=== PATIENT | female | born 1935 | race Caucasian/White ===

== ENCOUNTER → 2018-05-10 09:45 | Outpatient (CLI) | payer MEDICARE, SELFPAY ==
[2018-05-10 12:31] LABS: Absolute Lymphocyte Count 1.09 X10^3/ul (0.83-4.51); Absolute Neutrophil Count 3.5 X10^3/uL (2.0-7.7); Basophil# 0.03 X10^3/uL; Basophil% 0.6 % (0-1); Eosinophil# 0.06 X10^3/uL; Eosinophils% 1.2 % (0-5); Hematocrit 43.3 % (37-47); Hemoglobin 14.2 g/dl (12.0-15.0); Lymphocyte # 1.09 X10^3/ul (4.0); Lymphocyte % 21.1 % (19-41); Mean Corp Hgb Conc 32.8 g/gl (32-36); Mean Corpuscular Hgb 30.7 pg (27.0-32.0); Mean Corpuscular Volume 93.7 fL (81-99); Mean Platelet Vol. 9.5 fl (6.2-12.0); Monocyte# 0.48 X10^3/uL; Monocyte% 9.3 % (0-10); Neutrophil % 67.6 % (47-70); Platelet Count 228 K/mm3 (150-450); RBC Distribution Width CV 12.9 % (11.6-14.6); RBC Distribution Width SD 43.5 fl (35.1-43.9); Red Blood Count 4.62 M/mm3 (4.2-5.4); White Blood Count 5.2 K/mm3 (4.4-11.0)
[2018-05-10 12:36] LABS: POSITIVE COUNT NO; POSITIVE DIFFERENTIAL NO; POSITIVE MORPHOLOGY NO
[2018-05-10 12:56] LABS: Vitamin D,25 Hydroxy 39.3 ng/mL (29.95-100.01)
[2018-05-10 13:10] LABS: ALB/GLOB Ratio 0.8 RATIO (0.9-2.4); AST(SGOT) 27 U/L (15-37); Alanine Aminotransfer ALT/SGPT 15 U/L (13-56); Albumin, Serum 3.5 g/dL (3.2-5.0); Alkaline Phosphatase 54 U/L (45-117); Anion Gap 6 (5-15); BUN 15 mg/dL (7-18); BUN/Creat Ratio 16.4 RATIO (10-20); Chloride 102 mmol/L (98-107); Creatinine, Serum 0.91 mg/dL (0.55-1.02); EST Glomerular Filtration Rate 63 mL/min (>60); Est Glom Filt Rate - Afr Amer 76 mL/min (>60); Globulin 4.2 g/dL (2.2-4.2); Glucose 77 mg/dL (74-106); Potassium 4.1 mmol/L (3.5-5.1); Protein, Total 7.7 g/dL (6.4-8.2); Sodium Level 140 mmol/L (136-145); Thyroid Stim Hormone (TSH) 1.42 uIU/mL (0.358-3.74)
== END ==
PROVIDERS: Family Provider Family Medicine Geriatric Medicine; PCP Family Medicine Geriatric Medicine; Visit Provider Family Medicine Geriatric Medicine
DX: I10 Essential (primary) hypertension (principal); E55.9 Vitamin D deficiency, unspecified
CPT/HCPCS: 36415; 80053; 82306; 84443; 85025

== ENCOUNTER → 2018-07-12 08:34 | Outpatient (CLI) | payer MEDICARE, SELFPAY ==
--- NOTE | 2018-07-12 08:39 | BD_ITS ---
STUDY: DUAL ENERGY X-RAY ABSORPTIOMETRY / DXA REASON FOR EXAM: Female, 83 years old. Early menopause. No loss of height. TECHNIQUE: Bone Mineral Density (BMD) measurements of lumbar spine and bilateral hips were obtained. COMPARISON: Comparison is made with prior study date June 27, 2012. FINDINGS: Lumbar Spine (L1-L4): g/cm2 (1.253) / T-score (0.6) / Z-score (2.5) Findings are suggestive of normal bone density with a low fracture risk. Left Femur Total: g/cm2 (0.927) / T-score (-0.6) / Z-score (1.5) Left Femoral Neck: g/cm2 (0.876) / T-score (-1.2) / Z-score (1.1) Right Femur Total: g/cm2 (0.884) / T-score (-1.0) / Z-score (1.1) Right Femoral Neck: g/cm2 (0.854) / T-score (-1.3) / Z-score (0.9) The T-Scores on the most recent prior examination were: Lumbar Spine (L1-L4): There has been worsening of bone density since the previous examination. Left Femur Total: which represents a worsening of 0.5%. Right Femur Total: which represents a worsening of 5.0%. BD/Dexa Bone Density Study IMPRESSION: The patient is considered osteopenic as outlined below according to World Percy Organization (WHO) criteria with a moderate fracture risk. There has been worsening of bone density since the previous examination. Reference Information: The T-score is the number of standard deviations above or below the standard which is normal for young adults at their peak bone mineral density. The World Health Organization (WHO) interprets the T-scores as follows: Above -1 Normal bone density Between -1 and -2.5 Osteopenia Equal to / or below -2.5 Osteoporosis As a practical clinical guideline, osteopenia may be graded as follows: Mild -1 through -1.5 Moderate -1.6 through -2.0 Severe -2.1 through -2.4 The Z-score is the number of standard deviations above or below age-matched controls. A Z-score of less than -1.5 would be considered abnormal. References: 1. NIH Osteoporosis and Related Bone Diseases http://www.osteo.org 2. International Society for Clinical Densitometry http://www.iscd.org 3. National Osteoporosis Foundation http://www.nof.org Electronically Signed: Allan Gonzalez MD at 10:19 EDT Tel [phone], Service support ,
== END ==
PROVIDERS: Family Provider Family Medicine Geriatric Medicine; PCP Family Medicine Geriatric Medicine
DX: Z78.0 Asymptomatic menopausal state (principal); Z13.820 Encounter for screening for osteoporosis; M85.80 Other specified disorders of bone density and structure, unspecified site
CPT/HCPCS: 77080

== ENCOUNTER → 2019-05-14 08:53 | Outpatient (CLI) | payer MEDICARE, SELFPAY ==
[2019-05-14 11:52] LABS: Absolute Lymphocyte Count 0.75 X10^3/uL (0.83-4.51); Absolute Neutrophil Count 9.4 X10^3/uL (2.0-7.7); Basophil# 0.02 X10^3/uL; Basophil% 0.2 % (0-1); Eosinophil# 0.03 X10^3/uL; Eosinophils% 0.3 % (0-5); Lymphocyte # 0.75 X10^3/ul (4.0); Lymphocyte % 6.9 % (19-41); Mean Corp Hgb Conc 32.6 g/dL (32-36); Mean Corpuscular Hgb 30.5 pg (27.0-32.0); Mean Corpuscular Volume 93.7 fL (81-99); Mean Platelet Vol. 9.2 fl (6.2-12.0); Monocyte% 5.5 % (0-10); NRBC Flagged by Analyzer 0 % (0-5); Neutrophil # 9.39 X10^3/uL (2.7-7.7); Neutrophil % 86.7 % (47-70); Platelet Count 230 K/mm3 (150-450); RBC Distribution Width CV 13.4 % (11.6-14.6); RBC Distribution Width SD 45.2 fl (35.1-43.9); Red Blood Count 4.59 M/mm3 (4.2-5.4); White Blood Count 10.8 K/mm3 (4.4-11.0)
[2019-05-14 12:12] LABS: ALB/GLOB Ratio 0.9 RATIO (0.9-2.4); AST(SGOT) 26 U/L (15-37); Alanine Aminotransfer ALT/SGPT 8 U/L (13-56); Albumin, Serum 3.3 g/dL (3.2-5.0); Alkaline Phosphatase 58 U/L (45-117); Anion Gap 5 (5-15); BUN 30 mg/dL (7-18); BUN/Creat Ratio 20.1 RATIO (10-20); Calcium,Total 8.6 mg/dL (8.5-10.1); Chloride 103 mmol/L (98-107); Creatinine, Serum 1.49 mg/dL (0.55-1.02); EST Glomerular Filtration Rate 36 mL/min (>60); Est Glom Filt Rate - Afr Amer 43 mL/min (>60); Globulin 3.7 g/dL (2.2-4.2); Glucose 96 mg/dL (74-106); Sodium Level 137 mmol/L (136-145); Thyroid Stim Hormone (TSH) 1.04 uIU/mL (0.358-3.74)
[2019-05-14 22:03] LABS: Vitamin D,25 Hydroxy 30.3 ng/mL (29.95-100.01)
== END ==
PROVIDERS: Family Provider Family Medicine Geriatric Medicine; PCP Family Medicine Geriatric Medicine; Visit Provider Family Medicine Geriatric Medicine
DX: I10 Essential (primary) hypertension (principal); E55.9 Vitamin D deficiency, unspecified
CPT/HCPCS: 36415; 80053; 82306; 84443; 85025

== ENCOUNTER → 2019-07-23 13:34 | Outpatient (CLI) | payer MEDICARE, SELFPAY ==
[2019-07-23 16:39] LABS: Absolute Lymphocyte Count 1.23 X10^3/uL (0.83-4.51); Absolute Neutrophil Count 6.2 X10^3/uL (2.0-7.7); Basophil# 0.03 X10^3/uL; Basophil% 0.4 % (0-1); Eosinophil# 0.03 X10^3/uL; Eosinophils% 0.4 % (0-5); Hematocrit 42.9 % (37-47); Hemoglobin 13.5 g/dL (12.0-15.0); Lymphocyte # 1.23 X10^3/ul (4.0); Lymphocyte % 15.1 % (19-41); Mean Corp Hgb Conc 31.5 g/dL (32-36); Mean Corpuscular Hgb 30.6 pg (27.0-32.0); Mean Corpuscular Volume 97.3 fL (81-99); Mean Platelet Vol. 9.5 fl (6.2-12.0); Monocyte# 0.67 X10^3/uL; Monocyte% 8.2 % (0-10); NRBC Flagged by Analyzer 0 % (0-5); Neutrophil # 6.16 X10^3/uL (2.7-7.7); Neutrophil % 75.4 % (47-70); Platelet Count 223 K/mm3 (150-450); RBC Distribution Width CV 13.4 % (11.6-14.6); RBC Distribution Width SD 47.9 fl (35.1-43.9); Red Blood Count 4.41 M/mm3 (4.2-5.4); White Blood Count 8.2 K/mm3 (4.4-11.0)
[2019-07-23 16:57] LABS: ALB/GLOB Ratio 0.8 RATIO (0.9-2.4); AST(SGOT) 20 U/L (15-37); Alanine Aminotransfer ALT/SGPT 10 U/L (13-56); Albumin, Serum 3.2 g/dL (3.2-5.0); Alkaline Phosphatase 65 U/L (45-117); Anion Gap 5 (5-15); BUN 23 mg/dL (7-18); BUN/Creat Ratio 27.9 RATIO (10-20); Calcium,Total 8.7 mg/dL (8.5-10.1); Chloride 103 mmol/L (98-107); Creatinine, Serum 0.82 mg/dL (0.55-1.02); EST Glomerular Filtration Rate 70 mL/min (>60); Est Glom Filt Rate - Afr Amer 85 mL/min (>60); Globulin 4.1 g/dL (2.2-4.2); Glucose 120 mg/dL (74-106); Protein, Total 7.3 g/dL (6.4-8.2); Sodium Level 136 mmol/L (136-145)
== END ==
PROVIDERS: Family Provider Family Medicine Geriatric Medicine; PCP Family Medicine Geriatric Medicine; Visit Provider Family Medicine Geriatric Medicine
DX: R10.9 Unspecified abdominal pain (principal); N39.0 Urinary tract infection, site not specified
CPT/HCPCS: 36415; 80053; 85025; 87086

== ENCOUNTER → 2019-07-23 16:12 | Outpatient (CLI) | payer MEDICARE, SELFPAY ==
--- NOTE | 2019-07-23 16:15 | CT_ITS ---
STUDY: CT ABDOMEN AND PELVIS WITH CONTRAST REASON FOR EXAM: Female, 84 years old. Abdominal pain. RADIATION DOSAGE (If Supplied By Facility): CTDIvol = ( 15.07 ) mGy, DLP = ( 304.09 ) mGycm TECHNIQUE: Transaxial images were obtained from the dome of the diaphragm to the symphysis pubis with oral contrast. 100 ml of Gastrografin 100mL Isovue-300 contrast was administered. Sagittal and coronal images were reconstructed. Individualized dose optimization techniques were used for this CT. COMPARISON: None. FINDINGS: The visualized lung bases are clear. The visualized portions of the heart and pericardium are within normal limits. There are no calcified gallstones present. The liver is within normal limits. There are no suspicious hepatic lesions. The spleen is normal in size. The pancreas is within normal limits. The adrenal glands are within normal limits. There are no renal or ureteral stones. There is no hydronephrosis. There are no focal renal lesions. Normal visualized stomach. There is no bowel obstruction. There is a large amount of stool in the colon, consistent with constipation. There are inflammatory changes in the pelvis adjacent to sigmoid diverticula. This is consistent with acute sigmoid diverticulitis. The appendix is visualized and appears normal. The aorta is normal in caliber. The patient is status post hysterectomy. There is no abdominal or pelvic free air, free fluid, fluid collection or lymphadenopathy. There are no destructive osseous lesions. CT/Abdomen/Pelvis WITH Contrast IMPRESSION: Acute sigmoid diverticulitis without evidence of perforation or abscess formation. No bowel obstruction. Normal appendix. Constipation. Electronically Signed: Alex Sandy, at 17:53 EDT Tel , Service support ,
== END ==
PROVIDERS: Family Provider Family Medicine Geriatric Medicine; PCP Family Medicine Geriatric Medicine; Referring Provider Family Medicine Geriatric Medicine; Visit Provider Family Medicine Geriatric Medicine
DX: R10.9 Unspecified abdominal pain (principal); N39.0 Urinary tract infection, site not specified
CPT/HCPCS: 36415; 74177; 80053; 85025; 87086; 87088; Q9967

== ENCOUNTER → 2019-07-24 09:43 | Outpatient (CLI) | payer MEDICARE, SELFPAY | PROVIDERS: Family Provider Family Medicine Geriatric Medicine; PCP Family Medicine Geriatric Medicine; Referring Provider Family Medicine Geriatric Medicine; Visit Provider Family Medicine Geriatric Medicine | DX: R19.7 Diarrhea, unspecified (principal) | CPT/HCPCS: 82274; 83630; 87177; 87209; 87493; 87506 ==

== ENCOUNTER → 2020-04-30 08:10 | Outpatient (CLI) | payer MEDICARE, SELFPAY ==
--- NOTE | 2020-04-30 08:22 | BD_ITS ---
STUDY: DUAL ENERGY X-RAY ABSORPTIOMETRY / DXA REASON FOR EXAM: Female, 84 years old. TRANSITIONS RN CARE COORDINATOR-SURGICAL EARLY AT 35 -- HX OF HRT -- TAKES 1000MG CALCIUM + MULTIVITAMIN -- HAS BEEN ON [facility] FOR A LONG TIME -- DOES HIGH AMOUNT OF EXERCISE -- FAMILY HX OF OSTEO- MOTHER -- LISA OF 0.75 INCHES TECHNIQUE: Bone Mineral Density (BMD) measurements of lumbar spine and bilateral hips were obtained. COMPARISON: Comparison is made with prior study dated July 12, 2018. FINDINGS: Lumbar Spine (L1-L4): g/cm2 (1.309) / T-score (1.2) / Z-score (3.1) Findings are suggestive of normal bone density with a low fracture risk. Left Femur Total: g/cm2 (0.872) / T-score (-1.1) / Z-score (1.1) Left Femoral Neck: g/cm2 (0.850) / T-score (-1.4) / Z-score (1.0) Right Femur Total: g/cm2 (0.856) / T-score (-1.2) / Z-score (1.0) Right Femoral Neck: g/cm2 (0.854) / T-score (-1.3) / Z-score (1.0) The T-Scores on the most recent prior examination were: Lumbar Spine (L1-L4): There has been improvement of bone density since the previous examination. Left Femur Total: which represents a worsening of 5.9%. Right Femur Total: which represents a worsening of 3.2%. BD/Dexa Bone Density Study IMPRESSION: The patient is considered osteopenic as outlined below according to World Percy Organization (WHO) criteria with a low fracture risk. There has been worsening of bone density since the previous examination. Reference Information: The T-score is the number of standard deviations above or below the standard which is normal for young adults at their peak bone mineral density. The World Health Organization (WHO) interprets the T-scores as follows: Above -1 Normal bone density Between -1 and -2.5 Osteopenia Equal to / or below -2.5 Osteoporosis As a practical clinical guideline, osteopenia may be graded as follows: Mild -1 through -1.5 Moderate -1.6 through -2.0 Severe -2.1 through -2.4 The Z-score is the number of standard deviations above or below age-matched controls. A Z-score of less than -1.5 would be considered abnormal. References: 1. NIH Osteoporosis and Related Bone Diseases http://www.osteo.org 2. International Society for Clinical Densitometry http://www.iscd.org 3. National Osteoporosis Foundation http://www.nof.org Electronically Signed: Allan Gonzalez, at 8:28 EDT , Service support ,
== END ==
PROVIDERS: PCP Family Medicine Geriatric Medicine; Referring Provider Family Medicine Geriatric Medicine; Visit Provider Family Medicine Geriatric Medicine
DX: Z78.0 Asymptomatic menopausal state (principal); M85.80 Other specified disorders of bone density and structure, unspecified site
CPT/HCPCS: 77080

== ENCOUNTER → 2020-05-15 10:03 | Outpatient (CLI) | payer MEDICARE, SELFPAY ==
[2020-05-15 12:41] LABS: Absolute Lymphocyte Count 1.57 X10^3/uL (0.83-4.51); Basophil# 0.03 X10^3/uL; Basophil% 0.6 % (0-1); Eosinophil# 0.07 X10^3/uL; Eosinophils% 1.4 % (0-5); Hematocrit 44.6 % (37-47); Lymphocyte # 1.57 X10^3/ul (4.0); Lymphocyte % 30.4 % (19-41); Mean Corp Hgb Conc 31.4 g/dL (32-36); Mean Corpuscular Hgb 30.6 pg (27.0-32.0); Mean Corpuscular Volume 97.4 fL (81-99); Mean Platelet Vol. 9.4 fl (6.2-12.0); Monocyte% 9.7 % (0-10); NRBC Flagged by Analyzer 0 % (0-5); Neutrophil # 2.99 X10^3/uL (2.7-7.7); Neutrophil % 57.7 % (47-70); Platelet Count 201 K/mm3 (150-450); RBC Distribution Width CV 13.1 % (11.6-14.6); RBC Distribution Width SD 46.7 fl (35.1-43.9); Red Blood Count 4.58 M/mm3 (4.2-5.4); White Blood Count 5.2 K/mm3 (4.4-11.0)
[2020-05-15 13:06] LABS: Vitamin D,25 Hydroxy 51.5 ng/mL
[2020-05-15 13:17] LABS: ALB/GLOB Ratio 0.9 RATIO (0.9-2.4); AST(SGOT) 23 U/L (15-37); Alanine Aminotransfer ALT/SGPT 14 U/L (13-56); Albumin, Serum 3.5 g/dL (3.2-5.0); Alkaline Phosphatase 52 U/L (45-117); Anion Gap 2 (5-15); BUN 22 mg/dL (7-18); Calcium,Total 8.8 mg/dL (8.5-10.1); Chloride 103 mmol/L (98-107); Creatinine, Serum 0.73 mg/dL (0.55-1.02); EST Glomerular Filtration Rate 80 mL/min (>60); Est Glom Filt Rate - Afr Amer 97 mL/min (>60); Globulin 3.8 g/dL (2.2-4.2); Glucose 79 mg/dL (74-106); Potassium 4.4 mmol/L (3.5-5.1); Protein, Total 7.3 g/dL (6.4-8.2); Sodium Level 138 mmol/L (136-145); Thyroid Stim Hormone (TSH) 2.71 uIU/mL (0.358-3.74)
== END ==
PROVIDERS: PCP Family Medicine Geriatric Medicine; Visit Provider Family Medicine Geriatric Medicine
DX: I10 Essential (primary) hypertension (principal); E55.9 Vitamin D deficiency, unspecified
CPT/HCPCS: 36415; 80053; 82306; 84443; 85025

== ENCOUNTER → 2021-05-18 08:55 | Outpatient (CLI) | payer MEDICARE, SELFPAY ==
[2021-05-18 11:04] LABS: Absolute Lymphocyte Count 1.24 X10^3/uL (0.83-4.51); Absolute Neutrophil Count 4.1 X10^3/uL (2.0-7.7); Basophil# 0.03 X10^3/uL; Basophil% 0.5 % (0-1); Eosinophil# 0.07 X10^3/uL; Eosinophils% 1.2 % (0-5); Hematocrit 47.6 % (37-47); Hemoglobin 15.2 g/dL (12.0-15.0); Lymphocyte # 1.24 X10^3/ul (0.83-4.51); Mean Corp Hgb Conc 31.9 g/dL (32-36); Mean Corpuscular Hgb 30.6 pg (27.0-32.0); Mean Corpuscular Volume 95.8 fL (81-99); Mean Platelet Vol. 9.4 fl (6.2-12.0); Monocyte# 0.47 X10^3/uL; NRBC Flagged by Analyzer 0 % (0-5); Neutrophil # 4.08 X10^3/uL (2.7-7.7); Neutrophil % 69.1 % (47-70); Platelet Count 202 K/mm3 (150-450); RBC Distribution Width CV 12.6 % (11.6-14.6); RBC Distribution Width SD 44.8 fl (35.1-43.9); Red Blood Count 4.97 M/mm3 (4.2-5.4); White Blood Count 5.9 K/mm3 (4.4-11.0)
[2021-05-18 11:21] LABS: Vitamin D,25 Hydroxy 56.1 ng/mL
[2021-05-18 11:28] LABS: ALB/GLOB Ratio 0.9 RATIO (0.9-2.4); AST(SGOT) 25 U/L (15-37); Alanine Aminotransfer ALT/SGPT 14 U/L (13-56); Albumin, Serum 3.7 g/dL (3.2-5.0); Alkaline Phosphatase 52 U/L (45-117); Anion Gap 6 (5-15); BUN 21 mg/dL (7-18); BUN/Creat Ratio 30.7 RATIO (10-20); Calcium,Total 8.9 mg/dL (8.5-10.1); Chloride 103 mmol/L (98-107); Creatinine, Serum 0.68 mg/dL (0.55-1.02); EST Glomerular Filtration Rate 87 mL/min (>60); Est Glom Filt Rate - Afr Amer 105 mL/min (>60); Glucose 88 mg/dL (74-106); Potassium 4.1 mmol/L (3.5-5.1); Protein, Total 7.7 g/dL (6.4-8.2); Sodium Level 139 mmol/L (136-145); Thyroid Stim Hormone (TSH) 1.94 uIU/mL (0.358-3.74)
== END ==
PROVIDERS: Visit Provider Family Medicine Geriatric Medicine
DX: I10 Essential (primary) hypertension (principal); E55.9 Vitamin D deficiency, unspecified
CPT/HCPCS: 36415; 80053; 82306; 84443; 85025

== ENCOUNTER → 2022-04-12 | Outpatient (CLI) | payer MEDICARE, SELFPAY ==
--- NOTE | 2022-04-12 14:40 | RAD_ITS ---
EXAM: XR LUMBOSACRAL SPINE, 2 OR 3 VIEWS CLINICAL INDICATION: M56.26 TECHNIQUE: Frontal and lateral views of the lumbar spine and sacrum. This report was created using [employer] technology. COMPARISON: None. FINDINGS: VERTEBRAE: Unremarkable. Preserved vertebral body height. No fracture. No spondylolisthesis. Preservation of the normal lumbar lordosis. No significant facet arthropathy. DISC SPACES: There is disc space narrowing at all levels. GASTROINTESTINAL TRACT: Unremarkable as visualized. Included bowel gas pattern is non-obstructive. RAD/Lumbar Spine 2 or 3 Views IMPRESSION: 1. No acute osseous abnormalities. 2. Degenerative changes with disc space narrowing. Electronically Signed: Volodymyr Cooper MD at 3:06 EDT ,
== END | disposition home or self-care (01) ==
LOC: RAD 14:42
PROVIDERS: PCP Family Medicine Geriatric Medicine; Visit Provider Anesthesiology Pain Medicine
DX: M54.50 Low back pain, unspecified (principal)
CPT/HCPCS: 72100

== ENCOUNTER → 2022-04-14 | Outpatient (CLI) | payer MEDICARE, SELFPAY ==
--- NOTE | 2022-04-14 13:11 | STRESSREP ---
Stress Test Report Date: 04-14-2022 Procedure: Pharmacologic stress nuclear imaging study Indications: Non-ST segment elevation MT Consent: Per the patient Procedure: The patient underwent pharmacologic (Regadenoson 0.4mg ) evaluation with a peak heart rate of 86 beats per minute (63%predicted maximal heart rate) and a peak blood pressure of 142/70 mmHg. The baseline ECG demonstrated normal sinus rhythm; left bundle branch block pattern. The peak pharmacologic ECG demonstrated no obvious ECG changes. There was an isolated PVC during infusion. There was no complaint of chest discomfort during pharmacologic infusion or recovery. The examination was discontinued secondary to completion of protocol. Impression: 1. Pharmacologic (Regadenoson) evaluation 2. Peak pharmacologic ECG with continued left bundle branch block pattern with no obvious ECG changes. 3. There was an isolated PVC during infusion. 4. Nuclear images pending Myocardial perfusion imaging study: Technique: The patient was injected with 11 point millicuries of technetium 99m Cardiolite and subsequently rest SPECT Cardiolite nuclear imaging was obtained in the horizontal long, vertical long, and short axis views. The patient underwent pharmacologic (Regadenoson) evaluation with a peak heart rate of 86 beats per minute (63% percent predicted maximal heart rate) and a peak blood pressure of 142/70 mmHg. The patient was injected with 33.2 millicuries of technetium 99m Cardiolite and subsequently stress SPECT Cardiolite nuclear imaging was obtained in the horizontal long, vertical long, and short axis views. A gated Cardiolite study at peak stress was obtained. Interpretation: Rest and stress SPECT Cardiolite nuclear imaging status post realignment, normalization, and attenuation correction demonstrate the appearance of diminished absence of myocardial perfusion/tracer uptake in portions of the mid to distal anterior, anteroapical, distal anteroseptal/septal apical, and distal inferoseptal/septal apical segments without significant change between rest and stress. There is diminished end-systolic thickening and brightening in the aforementioned area. The gated Cardiolite study demonstrates diminished myocardial thickening and inward wall motion in the aforementioned areas. The reported LVEF is 72%. Impression: 1. Rest and stress SPECT current nuclear imaging demonstrate myocardial perfusion changes compatible with an area of previous myocardial injury/infarction involving portions of the mid to distal anterior, anteroapical, distal anteroseptal/septal apical, and distal inferoseptal/septal apical segments with no myocardial perfusion changes considered diagnostic for associated stress-induced myocardial ischemia. 2. The gated Cardiolite study reports an LVEF of 72%. This note was generated with [employer] software. It may contain incorrect words, spelling, and punctuation that were not noted in checking the note before signing.
== END | disposition home or self-care (01) ==
PROVIDERS: PCP Family Medicine Geriatric Medicine; Referring Provider Family Medicine Geriatric Medicine; Visit Provider Family Medicine Geriatric Medicine
DX: I21.4 Non-ST elevation (NSTEMI) myocardial infarction (principal)
CPT/HCPCS: 78452; 93017; A9500; A4216; J2785

== ENCOUNTER → 2022-05-31 | Outpatient (CLI) | payer MEDICARE, SELFPAY ==
[2022-05-31 13:33] LABS: Absolute Lymphocyte Count 1.64 X10^3/uL (0.83-4.51); Absolute Neutrophil Count 3.9 X10^3/uL (2.0-7.7); Basophil# 0.03 X10^3/uL; Basophil% 0.5 % (0-1); Eosinophil# 0.08 X10^3/uL; Eosinophils% 1.3 % (0-5); Hematocrit 44.6 % (37-47); Hemoglobin 14.3 g/dL (12.0-15.0); Lymphocyte # 1.64 X10^3/ul (0.83-4.51); Lymphocyte % 25.9 % (19-41); Mean Corp Hgb Conc 32.1 g/dL (32-36); Mean Corpuscular Hgb 30.9 pg (27.0-32.0); Mean Corpuscular Volume 96.3 fL (81-99); Mean Platelet Vol. 8.7 fl (6.2-12.0); Monocyte# 0.62 X10^3/uL; Monocyte% 9.8 % (0-10); NRBC Flagged by Analyzer 0 % (0-5); Neutrophil # 3.94 X10^3/uL (2.7-7.7); Neutrophil % 62.2 % (47-70); Platelet Count 202 K/mm3 (150-450); RBC Distribution Width CV 13.2 % (11.6-14.6); RBC Distribution Width SD 46.6 fl (35.1-43.9); Red Blood Count 4.63 M/mm3 (4.2-5.4); White Blood Count 6.3 K/mm3 (4.4-11.0)
[2022-05-31 13:55] LABS: Vitamin D,25 Hydroxy 57.7 ng/mL
[2022-05-31 14:00] LABS: ALB/GLOB Ratio 0.9 RATIO (0.9-2.4); AST(SGOT) 21 U/L (15-37); Alanine Aminotransfer ALT/SGPT 8 U/L (13-56); Albumin, Serum 3.4 g/dL (3.2-5.0); Alkaline Phosphatase 48 U/L (45-117); Anion Gap 5 (5-15); BUN 25 mg/dL (7-18); BUN/Creat Ratio 36.8 RATIO (10-20); Calcium,Total 9.2 mg/dL (8.5-10.1); Chloride 104 mmol/L (98-107); Creatinine, Serum 0.68 mg/dL (0.55-1.02); EST Glomerular Filtration Rate 87 mL/min (>60); Est Glom Filt Rate - Afr Amer 106 mL/min (>60); Globulin 3.8 g/dL (2.2-4.2); Glucose 84 mg/dL (74-106); Potassium 4.2 mmol/L (3.5-5.1); Protein, Total 7.2 g/dL (6.4-8.2); Sodium Level 139 mmol/L (136-145); Thyroid Stim Hormone (TSH) 1.71 uIU/mL (0.358-3.74); Uric Acid 2.8 mg/dL (2.6-6.0)
== END | disposition home or self-care (01) ==
LOC: LAB 12:44
PROVIDERS: PCP Family Medicine Geriatric Medicine; Referring Provider Family Medicine Geriatric Medicine; Visit Provider Family Medicine Geriatric Medicine
DX: I10 Essential (primary) hypertension (principal); E55.9 Vitamin D deficiency, unspecified; M10.9 Gout, unspecified
CPT/HCPCS: 36415; 80053; 82306; 84443; 84550; 85025

== ENCOUNTER → 2022-08-20 | Outpatient (CLI) | payer MEDICARE, SELFPAY ==
[2022-08-20 12:40] LABS: Mucous, Urine 0 SEEN /hpf (<or=2+); Red Blood Cells-Urine 0 SEEN /hpf (0-5)
[2022-08-20 13:46] LABS: Color, Urine Yellow (Yellow); Glucose, Dipstick Normal (Normal); Ketone-Dipstick 5 mg/dl (Negative); Leukocyte Esterase-Dipstick 500 /ul (Negative); Nitrite-Dipstick Negative (Negative); Occult Blood-Urine 10 /ul (Negative); Protein-Dipstick Negative (Negative); Specific Gravity, Urine 1.025 (1.002-1.030); Urine Bilirubin Dipstick Negative (Negative); Urine Clarity Clear (Clear); Urine Urobilinogen Normal (Normal)
[2022-08-20 13:48] LABS: Squamous Epithelial Cells - UA 0-5 SEEN /hpf (5-10); White Blood Cells 10-25 SEEN /hpf (0-5)
[2022-08-20 13:49] LABS: Bacteria 1+ /hpf (None Seen)
== END | disposition home or self-care (01) ==
LOC: LAB.FUTURE 12:34 → LABSPEC 12:34
PROVIDERS: PCP Family Medicine Geriatric Medicine; Visit Provider Physician Assistant Surgical
DX: N39.0 Urinary tract infection, site not specified (principal)
CPT/HCPCS: 81001; 87086; 87088

== ENCOUNTER → 2022-09-03 | Outpatient (CLI) | payer MEDICARE, SELFPAY ==
--- NOTE | 2022-09-03 12:18 | BI_ITS ---
MAMMOGRAPHY - BILATERAL SCREENING REASON FOR EXAM: Female, 87 years old. Routine annual screening examination. PERTINENT HISTORY: Non-contributory. TECHNIQUE: Digital bilateral breast wayne (3D mammographic acquisition) in the CC and MLO projections. 2-D mediolateral oblique (MLO) and craniocaudad (CC) views of both breasts were obtained. CAD: Full Field Digital Mammography with Computer Added Detection was performed. COMPARISON: Mammogram from 07/09/2021, 07/11/2020. FINDINGS: Breast Composition: The breasts are heterogeneously dense, which may obscure small masses. There are no dominant masses or suspicious calcifications. Stable benign-appearing left breast calcifications. No other significant abnormalities are identified. There has been no significant change since the prior study. BI/SCRN MAMM (CAD)W/WAYNE BILAT IMPRESSION: Stable bilateral screening mammogram. Yearly follow-up mammogram recommended. (A) ASSESSMENT CATEGORY: BIRADS Category 2: Benign. A letter regarding these results will be sent to the patient by the facility within 30 days. Approximately 10% of breast cancers are not detected by mammography. A normal mammogram should not delay biopsy of a clinically suspicious abnormality. Electronically Signed: Merlin Montelongo, at 16:04 EST ,
== END | disposition home or self-care (01) ==
LOC: OPBI 12:17
PROVIDERS: PCP Family Medicine Geriatric Medicine; Referring Provider Family Medicine Geriatric Medicine; Visit Provider Family Medicine Geriatric Medicine
DX: Z12.31 Encounter for screening mammogram for malignant neoplasm of breast (principal)
CPT/HCPCS: 77063; 77067

== ENCOUNTER 2022-09-08 06:59 | Observation (INO) | payer MEDICARE, SELFPAY ==
[2022-08-26 14:34] LABS: Absolute Lymphocyte Count 1.45 X10^3/uL (0.83-4.51); Absolute Neutrophil Count 4.1 X10^3/uL (2.0-7.7); Basophil# 0.03 X10^3/uL; Basophil% 0.5 % (0-1); Eosinophil# 0.04 X10^3/uL; Eosinophils% 0.6 % (0-5); Hemoglobin 13.5 g/dL (12.0-15.0); Lymphocyte # 1.45 X10^3/ul (0.83-4.51); Lymphocyte % 23.4 % (19-41); Mean Corp Hgb Conc 32.1 g/dL (32-36); Mean Corpuscular Hgb 30.1 pg (27.0-32.0); Mean Corpuscular Volume 93.8 fL (81-99); Monocyte# 0.51 X10^3/uL; Monocyte% 8.2 % (0-10); NRBC Flagged by Analyzer 0 % (0-5); Neutrophil # 4.14 X10^3/uL (2.7-7.7); Neutrophil % 66.8 % (47-70); Platelet Count 190 K/mm3 (150-450); RBC Distribution Width CV 12.7 % (11.6-14.6); Red Blood Count 4.48 M/mm3 (4.2-5.4); White Blood Count 6.2 K/mm3 (4.4-11.0)
[2022-08-26 14:44] LABS: International Normalized Ratio 1.1; Prothrombin Time (Protime)PT. 13.6 SECONDS (11.7-14.9)
[2022-08-26 14:45] LABS: Partial Thromboplast Time 24.8 Seconds (24.1-36.2)
[2022-08-26 15:10] LABS: Anion Gap 3 (5-15); BUN 22 mg/dL (7-18); BUN/Creat Ratio 31.6 RATIO (10-20); Calcium,Total 9.6 mg/dL (8.5-10.1); Chloride 105 mmol/L (98-107); EST Glomerular Filtration Rate 85 mL/min (>60); Est Glom Filt Rate - Afr Amer 103 mL/min (>60); Glucose 97 mg/dL (74-106); Potassium 3.9 mmol/L (3.5-5.1); Sodium Level 141 mmol/L (136-145)
[2022-08-26 15:17] LABS: AST(SGOT) 20 U/L (15-37); Alanine Aminotransfer ALT/SGPT 8 U/L (13-56); Albumin, Serum 3.4 g/dL (3.2-5.0); Alkaline Phosphatase 45 U/L (45-117); Bilirubin, Direct 0.16 mg/dL (0.00-0.30); Globulin 3.7 g/dL (2.2-4.2); Magnesium 2.3 mg/dL (1.6-2.6); Protein, Total 7.1 g/dL (6.4-8.2)
--- NOTE | 2022-08-26 20:20 | PCM.HP.BLA ---
History and Physical History and Physical [facility] Patient Name: Natalia Jenkins : 1935 From:? FRANCHESCA LIVINGSTON PA-C? DATE OF SURGERY:? 09/08/2022 SCHEDULED PROCEDURE:? right total hip arthroplasty HISTORY OF PRESENT ILLNESS: Preoperative history and physical exam was performed on August 23, 2022.? This is an 86-year-old female who has had ongoing pain in her hip for the past 1-2 years.? Pain can still reach as high as an 8/10 with activities.? Her pain has been intermittent, dull, aching, sharp, sore.? Pain is increased with going up and down stairs, sitting and walking.? Patient has increased pain with activities of daily living including housework, shopping, leisure activities such as cooking, yard work and exercising.? She has stumbled secondary to the pain.? She feels unsafe walking on uneven ground and going up and down stairs.? Patient does have start up pain.? Pain is located in the right groin.? Pain occasionally wakes her at nighttime.? Patient has tried oral medications including Tylenol with minimal relief, tramadol, previous corticosteroid injection 1 year ago with no relief, intra-articular injection with minimal relief.? She denies previous surgery on the right hip.? She has been using a cane or the past 8 months.? Patient does have medical history pertinent for Parkinson's disease, hypercholesterolemia, hypertension and osteoporosis.? She denies previous history of DVT or pulmonary embolism.? She states she has been on Keflex for urinary tract infection in which she is currently without any symptoms right now.? Patient does see a neurologist as well as pear picker.? There was discussion whether patient had a previous stroke versus heart attack.? Based on cardiology report he states that these findings may be related to her underlying left bundle branch block as opposed to a previous acute coronary syndrome event.? We are obtaining surgical clearance from the primary care physician Dr. Del Rosario.? We have already obtained clearance from the pear picker.? She currently denies any chest pain or shortness of breath. REVIEW OF SYSTEMS: Review Of Systems: Constitutional: Reports change in appetite and weight change, but denies fever. Cardiovasular: Denies chest pain, heart murmur and irregular heartbeat. Respiratory: Denies cough, pneumonia, shortness of breath, tuberculosis and wheezing. Gastrointestinal: Reports constipation, but denies diarrhea, heartburn, nausea, rectal itching, bloody stools and vomiting. Genitourinary: Reports incontinence. Musculoskeletal: Reports gait disturbance, leg swelling, trouble walking and weakness, but denies pain. Skin: Denies Raynaud's, history of shingles and tattoo. Neurological: Reports ambulatory dysfunction and tremor but denies dizziness and numbness/tingling. Psychiatric: Denies anxiety, insomnia and stress. Hematologic/Lymphatic: Denies anemia, bleeding/bruising tendency and past transfusion. Reviewed, no changes. PAST MEDICAL HISTORY: Advance Care Plan: Other Directive, LIVING WILL Effective Date: 04/30/2022 Other Directive, POA Effective Date: 04/30/2022 Past Medical History: Medical Problems: High Blood Pressure, Osteoporosis, Parkinson's Disease, Heart Attack Covid- 19 - VACCINATED? Hypercholesterolemia Accidents: None Surgical Hx: Cataracts - (2000) Hysterectomy - (1969) Tonsillectomy - (1939) Knee Arthroscopy LT - CANT REMB FOR SURE Bladder Repair - (2013) Anesthesia Complications: None Assistive Devices: Cane, Glasses Reviewed and updated. SOCIAL HISTORY: Social History: Marital: .Occupation: Retired.Work Status: Retired.Hand Dominance: Right-handed. Personal Habits:? Cigarette Use: Never Smoked Cigarettes.Smokeless Tobacco: Never Used Smokeless Tobacco.E-Cigarette Use: Never used.Alcohol: Occasionally.Drug Use: Denies Use.Enjoy Exercising: Daily. Reviewed and updated. VITALS: Ht: 64 Wt: 117lb Wt k.071 BMI: 20.1 BP: 122/78 Pulse: 70 Resp: 14 T: 97.2 T: 36.2C Pain Level: 4 O2SatR: 98 ALLERGIES: Penicillins Tetracycline Amoxicillin Penicillins Tetracycline? MEDICATIONS: Atorvastatin Calcium 10 mg 1po qday, Nifedipine ER Osmotic Release 30 mg 1po qday, Carbidopa-Levodopa 25-100 mg take 2 tablets by mouth 3 times a day, Evista 60 mg 1po qday, Aspirin 81 81 mg 1 pill? one time daily, Gemtesa 75 mg 1po qday, Rasagiline Mesylate 1 mg 1po qday, Womens Multi Gummies? 1po qday, Fish Oil 1000 mg 1po qday, Ezetimibe 10 mg 1 by mouth every day, Cephalexin 500 mg 1 by mouth three times a day X10 DAYS, Metoprolol Succinate ER 25 mg 1 by mouth every day, Vitamin D3 25 mcg (1000 Ut) take 1 capsule by mouth daily for vitamin, Calcium + D 500-1000-40 MG-Unt-mcg 2 by mouth every day PRE-OP EXAM:? General appearance:NORMAL? ? ? Other: Eyes: Conjunctivae and lids: NORMAL? Pupils: ERR Ears, Nose, Mouth, and Throat: NORMAL? Other: Inspection of lips, teeth and gums: NORMAL? ?Other: Neck: Examination of neck: no masses noted. Respiratory: Assessment of respiratory effort: NORMAL? ?Other: ?Auscultation of lungs: clear to auscultation no wheezes, rhonchi or rales. Cardiovascular:? Auscultation of heart: regular rate and rhythm, no murmurs, gallops or rubs. PHYSICAL EXAMINATION: Patient walks with an antalgic gait.? Right hip has tenderness to palpation over the lateral hip at the greater trochanteric region.? She has groin pain with any range of motion.? Range of motion 95, internal rotation 5, external rotation 25.? 4/5 hip strength secondary to pain. IMAGING STUDIES: Previous x-rays of the right hip reveal joint space narrowing, subchondral sclerosis, osteophyte formation consistent with severe stage IV erosive osteoarthritis IMPRESSION: 1.? Severe right hip erosive osteoarthritis 2.? Hypertension 3.? Parkinson's disease 4.? Hypercholesterolemia 5.? Left bundle branch block 6.? Questionable previous stroke PLAN: Dr. Alex Mendez did discuss and review with the patient all treatment options including surgical versus nonsurgical options.? Patient does wish to proceed with the above-stated procedure.? Potential risks, benefits, and complications of the procedure were discussed in detail including but not limited to , infection, nerve and blood vessel damage, persistent pain, numbness, tingling, paresthesias, blood clot, pulmonary embolism, and requirement for possible further surgery.? The patient expressed full understanding and has no further questions for the doctor.? Patient does agree to proceed with the above-stated procedure and has signed the surgery consent form. We discussed the current risks associated with COVID 19.? This does include the risk of exposure while in the hospital.? Patient was reassured local hospitals have low infection rates and are taking all necessary precautions to avoid exposure to patients.? In addition, we discussed strategies that can be used to help limit exposure including those that limit the patient's time in the hospital.? Also using strategies to limit the patient's need for continued inpatient services after being discharged from the hospital.? Patient was notified that we will need to comply with any screening or testing the hospital wishes to perform or that surgery may be delayed for any positive results. This dictation was created using voice recognition software. Phonetic and/or grammatical errors may exist. ___? I have re-examined the patient.? There are no clinical changes since date of exam. ___? See progress notes for changes. ___? Dictated on admission Date: ? ? ?Time: Signature:
--- NOTE | 2022-08-31 14:53 | CASEMGMT ---
REENA MULLER Assessment: TC to pt for initial transition planning/care coordination assessment. REENA MULLER introduced self and role at [facility], pt voices understanding and consents to assessment. Care providers, pharmacy, and demographics verified/updated. Admitting Dx: R direct anterior total hip PCP:Miguel Ángel Specialists:wero Mendez; Neuro in [place] for Parkinson's; alison Gomez Preferred Pharmacy: [facility] Insurance: A[employer]na [facility] Prescription Benefit: yes LNOK: Darien Jenkins, ; Krista Marlene, dtr Living Arrangements: Pt lives with in a single story house with 3-4 steps to enter with a rail. Pt reports she is I in ADL's and denies concerns at home. Transportation: Pt drives self and denies concerns with transportation. Pt states her can transport her post surgery. DME/HHC/SNF:Pt has a cane that she normally uses and a FWW for after surgery. Pt also has shower bench built in and grab bars in the bathroom. Pt denies hx of HHC or SNF stays. Pt states no concerns with going home at time of dc. She states that she would like to do her therapy at [facility]. She states she does not have an appt set up yet. Pt states no further concerns/needs. CM to follow. Advised pt to ask CM if any further question/concerns/needs arise, voices understanding. Pt Goal: Home with outpt therapy at [facility] Plan: Home with outpt therapy at [facility]
[2022-09-08] VITALS (13 sets, daily range): BP systolic 98–134; BP diastolic 50–75; PULSE 65–80; RESP 16–18; TEMP 36–36.9; O2SAT 94–100; BMI 20.8
[2022-09-08] MEDS: Magnesium 1 GM over 15 mins IV (06:10)
[2022-09-08] MEDS: Celecoxib 200 MG Capsule 400 MG PO (06:38)
[2022-09-08] MEDS: Acetaminophen 500 MG Tablet 1000 MG PO ×3 (06:38→21:33)
[2022-09-08] MEDS: Lactated Ringers 1,000 ML 999 ML IV ×2 (06:38→09:01)
[2022-09-08] MEDS: Gabapentin 600 MG Tablet PO (06:38)
[2022-09-08 06:40] LABS: Bedside Glucose 118 mg/dL (74-106)
--- NOTE | 2022-09-08 07:02 | OP.PCM_ITS ---
Report of Operation Date of Procedure: 09/08/22 Pre-Operative Diagnosis: Right hip primary osteoarthritis Post-Operative Diagnosis: Right hip primary osteoarthritis Surgery/Procedure Performed:: Right minimally invasive direct anterior total hip replacement Description of Surgical Findings:: Stable hip with equal leg length Surgeon: Alex Mendez digital content producer: Ernestina Cortez Type of Anesthesia: Spinal Anesthesiologist: Kiran So Special Medications: 2 g Ancef, 1 g TXA at incision, 1 g TXA closure, 10 mg Dec adron, joint cocktail (5 mg Duramorph, 30 mL of 0.5% Ropivicaine, 1000 units of epinephrine, 30 mg of Toradol) Specimen's removed: Bony cuts Estimated Blood Loss (mL): 150 Fluids Replaced: 1300 mL crystalloid Description of Procedure: Components used: 1. Insignia [place] femoral stem size 4 high offset 2. [place] trident 2 acetabular shell size 50 mm 3. Alem X3 polyethylene D 4. [place] Biolox delta 36mm, -5mm femoral head Brief history operative indications: 87 yo F who failed conservative measures for their hip osteoarthritis. X-rays were consistent with osteoarthritis including joint space narrowing, osteophyte formation and subchondral cysts. Total hip replacement was discussed with the patient with risks and benefits including but not limited to blood loss, DVTs, PEs, neurovascular damage, dislocation, general risks of anesthesia including loss of life. Patient demonstrated an understanding medical clearance is obtained the patient was consented for surgery. Procedure: On the date of procedure the patient's right hip was marked in the preoperative area. Patient was then taken back to the operating room where anesthesia assumed control of the C-spine and airway and administered anesthetic. Patient was transferred to the operating table and placed in the supine position. The hips were placed at the break of the bed and a sacral bump was placed. The right lower extremity was then prepped out in a sterile fashion using chlorhexidine while the surgeon scrubbed. The PA was vital in the positioning of the patient. Upon reentering the room the right lower extremity was draped in the standard orthopedic fashion and the incision was marked. A timeout was called and everyone agreed upon the side, the site, the procedure be performed, antibody given, and patient's identity. At this time incision was made through skin, subcutaneous tissue, and fat down to fascia. The fascia was then incised and the TFL was retracted laterally. A retractor was placed on the lateral border of the femoral neck. Attention was directed to the inferior portion of the approach and all crossing vessels were identified and appropriately coagulated. A retractor was then placed on the medial portion of the femoral neck. The anterior capsule was then cleared of all soft tissue and then H shaped capsulotomy was made. The retractors were then placed inside the capsule. The femoral neck was identified and a cleanup cut was made. At this time a power corkscrew was used to remove the femoral head. Attention was then turned toward the acetabulum where the soft tissues were appropriately retracted and the acetabulum was sequentially reamed to 50 mm. A 50 mm cup was then selected and impacted into place. Acetabular liner was impacted into place and locking mechanism was verified. The position of the acetabular cup was then verified under live fluoroscopy. Attention was then turned to the femur. Soft tissue releases on the medial and lateral femoral neck were appropriately done, the leg was externally rotated and lateralized. A Loo retractor was placed medially and proximally to the greater trochanter this allowed appropriate visualization and exposure of the femoral canal. Rongeour was then used to remove excess lateral bone. A canal finder and entry broach were used to open the proximal canal. Once we verified we were down the femoral canal we subsequently broached up to a size 4 femur. The appropriate neck was placed in the previously selected head was trialed with a -5 mm neck. Traction was pulled and the hip was reduced with internal rotation. Once it was appropriately reduced and stability was checked. There was minimal shuck, equal leg lengths and appropriate stability with hyperextension and external rotation as well as with 90? flexion and internal rotation. Fluoroscopy was then also used to verify the position of the components and leg lengths using the contralateral side for comparison. The trial components were then dislocated the proximal femur was again exposed and the components were removed from the wound. The final components were verified and opened. The wound was copiously irrigated out with normal saline. The acetabulum was checked for any residual debris. The final components were placed and impacted. Traction and internal rotation were again used to reduce the hip. After adequate reduction the hip remained stable with appropriate leg lengths. The final components were once again checked with live fluoroscopy and were found to be satisfactory. The wound was then copiously irrigated with normal saline once more, and hemostasis was obtained. Closure was then done using #1 Vicryl runner to close the fascia. A 2-0 vicryl interuppted sutures were used to close the subcutaneous skin. A 3-0 Monocryl and Steri-Strips were used for final skin closure. A Silverlon dressing was placed. Patient was awakened by anesthesia and transferred to the [facility]. Patient was then transferred to the PACU for recovery. During the course of the procedure the physician upholstery estimator (PE) played a vital role. Their intimate knowledge of my steps in the procedure aided in safe and expedient completion of the procedure. The PE played a vital rolls in positioning particularly in obtaining the appropriate positioning of the sacral bump. The PE was also vital in the retraction of soft tissues during the exposure and especially the femoral work as this is a vital part of the procedure to prevent complications and fractures. The PE was also vital and protecting soft tissues during times of bony cuts and reaming. He also played a vital role in closure with my direct supervision. The PE was also important during reduction and dislocation of the joint and trials intraoperatively. Postoperative plan: Patient will get 24 hours postop antibiotics. Patient will get in-house physica l therapy and will be weight-bear as tolerated. Patient will follow up in office in 2 weeks for a wound check and x-rays. Aspirin 81 mg twice daily. Complications No intraoperative complications Admit VTE Documentation VTE Present on Admission: No VTE Mechan Device Prophylaxis: SCD's and Thigh High MARCELA Hose VTE Pharm Prophylaxis ordered?: Yes
[2022-09-08] MEDS: Lactated Ringers 1,000 ML 75 ML IV (07:44)
--- NOTE | 2022-09-08 08:00 | FEM_PTH ---
PATIENT: DEVI HERNANDEZ LOC: MS3 U#:[id number] AGE/SX: 87/F ROOM: MS317 RE09/08/[address]: Dr. Alex Mendez MD : [id number] BED: 1 DIS: 09/10/2022 SPEC #: [id number] RECD: 09/08/22 10:04 STATUS: CAMERON CATERINA #: [id number] YARITZA: 09/08/22 08:[address]: Alex Mendez DEPT: SURGICAL PATHOLOGY RECD BY: Meron Gardiner ENTERED: 09/08/22 10:27 SP TYPE: FEM HEAD OTHR DR: Dr. Avery Del Rosario MD Tissues: Femoral region, NOS Procedures: Decalcification bone/plaque Surgery Specimen Level IV HEADER OPERATION: ERAS, total hip direct anterior approach PRE-OP DIAGNOSIS: Severe right hip erosive osteoarthritis TISSUE SUBMITTED: Right femoral head MICROSCOPIC DIAGNOSIS Bone and tissue of right hip, total hip resection: Severe degenerative joint disease. AM:aston 09/15/2022 MICROSCOPIC DESCRIPTION Slides are reviewed. GROSS DESCRIPTION Received is one container labeled with the patient's name and designated right femoral head. The specimen consists of a kemp femoral head measuring 4 x 4.5 x 4 cm. The articular surface displays prominent osteophyte formation, eburnation and bone erosion. Also present in the specimen container is a detached piece of bone consistent with portion of femoral neck measuring 4 x 3 x 1 cm. No soft tissue is identified. Also present in the container are multiple irregular fragments of bone reamings measuring in aggregate 4 x 4.5 x 0.6 cm. Kitchen Designer sections are submitted in two cassettes after decalcification as follows: 1 ? bone reamings, 2 ? femoral head. / SJ:aston 09/08/2022 TC:5 CPT: 05198, 21614
[2022-09-08] MEDS: Cefazolin 2 GM in 0.9% Normal Saline 100 ML IV (08:15)
[2022-09-08] MEDS: dexAMETHasone 10 MG/ML Vial IV (08:26)
--- NOTE | 2022-09-08 08:47 | RAD_ITS ---
EXAM: XR RIGHT HIP WITH PELVIS WHEN PERFORMED, 1 VIEW CLINICAL INDICATION: PAIN TECHNIQUE: Frontal view of the right hip with pelvis when performed. This report was created using Ever[employer] report generation technology. COMPARISON: None. FINDINGS: BONES/JOINTS: Right hip prosthesis in place in satisfactory position. SOFT TISSUES: Soft tissue gas related to recent surgery. RAD/Hip 1 view with Pelvis IMPRESSION: Satisfactory arthroplasty changes. Electronically Signed: Oliver Riggs MD at 11:08 EST ,
[2022-09-08] MEDS: TXA in NS 100ml (Placed in Wound) OPERA.SITE (09:10)
--- NOTE | 2022-09-08 10:05 | RAD_ITS ---
EXAM: XR RIGHT HIP WITH PELVIS WHEN PERFORMED, 2 OR 3 VIEWS CLINICAL INDICATION: Post Op -- AP both hips on single case/lateral of op hip PACU TECHNIQUE: Two or three views of the right hip with pelvis when performed. This report was created using [employer] report generation technology. COMPARISON: None. FINDINGS: BONES/JOINTS: Right hip prosthesis in satisfactory position. No acute fracture or subluxation. S SOFT TISSUES: oft tissue gas within the right buttock and proximal thigh related to recent hip replacement. RAD/Hip Min 2 Views (Portable) IMPRESSION: Satisfactory postop changes. Electronically Signed: Oliver Riggs MD at 10:48 EST ,
[2022-09-08] MEDS: Lactated Ringers 1,000 ML 125 ML IV (12:26)
[2022-09-08] MEDS: Ensure Surgery 237 ML LIQUID PO ×2 (12:40→17:25)
[2022-09-08] MEDS: Carbidopa/Levodopa 25/100 Tablet PO ×3 (14:05→21:33)
--- NOTE | 2022-09-08 14:34 | PCM.PN.HOSP ---
Subjective Subjective Consult requested by Dr. Mendez for postoperative medical management. Feels well. She denies any pain. Did have some bleeding from his surgical sites. Objective Data Objective Data Vital Signs: Vital Signs Temp Pulse Resp BP Pulse Ox O2 Del Method O2 Flow Rate 36.8 C 75 18 131/64 H 98 Room Air 4 09/08/22 14:08 09/08/22 14:08 09/08/22 14:08 09/08/22 14:08 09/08/22 14:08 09/08/22 14:08 09/08/22 12:33 Oxygen Flow Rate (L/min) 4 Oxygen Delivery Method Room Air Weight: 55 kg Body Mass Index (BMI) 20.8 Intake & Output: Intake and Output for Last 24 Hours 09/06/22 09/07/22 09/08/22 23:59 23:59 23:59 Intake Total 3117 / 3117 Balance 3117 / 3117 Lab / Micro Data Result Diagrams: 08/26/22 14:04 08/26/22 14:04 Labs: Laboratory Results - last 24 hr 09/08/22 06:04: POC Glucose 118 H Micro: Microbiology 08/26/22 14:04 Swab (Method) Nasal Screen MRSA/MSSA - Final Radiography Diagnostic Testing: Radiology Impression Hip/Pelvis X-Ray 09/08/22 08:47 IMPRESSION: Satisfactory arthroplasty changes. Electronically Signed: Oliver Riggs MD at 11:08 EST , Hip X-Ray 09/08/22 10:05 IMPRESSION: Satisfactory postop changes. Electronically Signed: Oliver Riggs MD at 10:48 EST , Physical Exam Const alert and no apparent distress HEENT head/scalp atraumatic and moist oral mucous membranes Resp normal respiratory effort, no retractions, no use of accessory muscles and clear to auscultation bilaterally Cardio regular rate, regular rhythm, S1 normal heart sound and S2 normal heart sound GI normal to inspection, nondistended, normoactive bowel sounds Skin Skin Narrative: Some bleeding around the dressing of her right hip. No ecchymosis noted. Assessment & Plan Assessment/Plan (1) Osteoarthritis of right hip: PLAN: Status post right hip replacement. Management per orthopedics PLAN: Plan Parkinson's disease: Continue with Sinemet History of abnormal stress tests: Has seen cardiology in the past. Reviewed documents by Dr. Magallanes and recommends current management with aspirin, atorvastatin and metoprolol succinate. Hyperlipidemia: Continue with statin Thank you for the consult. The hospitalist service will follow along during this patient's hospitalization. Patient medically stable for discharge. Discussed with the patient's daughter at bedside. Charges/Coding Visit Charges Inpatient E&M: 41771 Subs Hosp L2
--- NOTE | 2022-09-08 15:05 | NURSING ---
Pt got up to use the bathroom and her dressing on her rt hip was leaking blood out from under the dressing. Dressing was changed since 75% of it was saturated. New mepliex applied and sandbag weight put on pt.
[2022-09-08] MEDS: traMADol 50 MG Tablet PO (16:09)
[2022-09-08] MEDS: Cefazolin 1 GM/50 ML BAG IV (16:09)
[2022-09-08] MEDS: Aspirin 81 MG TAB.CHEW PO (17:25)
[2022-09-08] MEDS: Senna/Docusate Sodium 1 Tablet 2 TABLET PO (21:33)
[2022-09-08] MEDS: Atorvastatin Calcium 10 MG Tablet PO (21:33)
[2022-09-09] VITALS (9 sets, daily range): BP systolic 92–145; BP diastolic 47–76; PULSE 57–71; RESP 16–18; TEMP 36.4–37.1; O2SAT 93–99
[2022-09-09] MEDS: Cefazolin 1 GM/50 ML BAG IV (00:12)
[2022-09-09] MEDS: 0.9% Saline Lock 10 ML Syringe IV (00:13)
[2022-09-09] MEDS: Carbidopa/Levodopa 25/100 Tablet PO ×5 (06:10→20:55)
[2022-09-09] MEDS: Acetaminophen 500 MG Tablet 1000 MG PO ×3 (06:10→20:55)
[2022-09-09 07:21] LABS: Hematocrit 32.8 % (37-47); Hemoglobin 10.8 g/dL (12.0-15.0); Mean Corp Hgb Conc 32.9 g/dL (32-36); Mean Corpuscular Hgb 31.4 pg (27.0-32.0); Mean Corpuscular Volume 95.3 fL (81-99); Mean Platelet Vol. 9.5 fl (6.2-12.0); Platelet Count 152 K/mm3 (150-450); RBC Distribution Width CV 12.7 % (11.6-14.6); Red Blood Count 3.44 M/mm3 (4.2-5.4); White Blood Count 13.4 K/mm3 (4.4-11.0)
[2022-09-09 07:32] LABS: Anion Gap 4 (5-15); BUN 24 mg/dL (7-18); BUN/Creat Ratio 39.5 RATIO (10-20); Calcium,Total 8.3 mg/dL (8.5-10.1); Chloride 104 mmol/L (98-107); Creatinine, Serum 0.61 mg/dL (0.55-1.02); EST Glomerular Filtration Rate 99 mL/min (>60); Est Glom Filt Rate - Afr Amer 120 mL/min (>60); Estimated Creatinine Clearance 34.87 ml/min; Glucose 128 mg/dL (74-106); Potassium 4.3 mmol/L (3.5-5.1); Sodium Level 136 mmol/L (136-145)
[2022-09-09] MEDS: Multivitamins,Therapeutic Tablet 1 TABLET PO (07:47)
[2022-09-09] MEDS: Aspirin 81 MG TAB.CHEW PO ×2 (07:47→16:32)
[2022-09-09] MEDS: Ensure Surgery 237 ML LIQUID PO ×3 (07:47→16:34)
[2022-09-09] MEDS: Calcium Carb/Vitamin D 1 TABLET Tablet PO (07:48)
[2022-09-09] MEDS: Famotidine 20 MG Tablet PO (07:48)
[2022-09-09] MEDS: NIFEdipine 30 MG Tablet PO (07:48)
[2022-09-09] MEDS: Raloxifene HCl 60 MG Tablet PO (07:48)
[2022-09-09] MEDS: Senna/Docusate Sodium 1 Tablet 2 TABLET PO ×2 (07:48→20:57)
--- NOTE | 2022-09-09 08:56 | PCM.PN.ORT ---
Subjective Subjective 87-year-old female with history of Parkinson's disease presents today 1 day status post right direct anterior total replacement. Overall patient is feeling well. She is taking tramadol for pain with Tylenol. She did have some drainage from the wound yesterday her daughter is at bedside. They did have to change her dressing. She missed her physical therapy. No chest pain or shortness of breath. No other acute events were noted overnight. She did have some cramping when magnesium was administered preoperatively yesterday in the left calf which is resolved. Otherwise no complaints of calf pain today. Her vitals do reveal some hypertension which has been stable since admission. Objective Data Objective Data Vital Signs: Vital Signs Temp Pulse Resp BP Pulse Ox O2 Del Method O2 Flow Rate 97.6 F L 57 L 18 145/64 H 99 Room Air 4 09/09/22 07:38 09/09/22 07:49 09/09/22 07:38 09/09/22 07:38 09/09/22 07:38 09/09/22 07:38 09/09/22 00:00 Oxygen Flow Rate (L/min) 4 Oxygen Delivery Method Room Air Weight: 121 lb 4.068 oz Body Mass Index (BMI) 20.8 Intake & Output: Intake and Output for Last 24 Hours 09/07/22 09/08/22 09/09/22 23:59 23:59 23:59 Intake Total 4167 / 4167 50 / 50 Balance 4167 / 4167 50 / 50 Lab / Micro Data Attestation: I reviewed the patient's lab results. Result Diagrams: 09/09/22 06:52 09/09/22 06:52 Labs: Laboratory Results - last 24 hr 09/09/22 06:52: WBC 13.4 H, RBC 3.44 L, Hgb 10.8 L, Hct 32.8 L, MCV 95.3, MCH 31.4, MCHC 32.9, RDW Std Deviation 44.0 H, RDW Coeff of Larry 12.7, Plt Count 152, MPV 9.5 09/09/22 06:52: Sodium 136, Potassium 4.3, Chloride 104, Carbon Dioxide 28.0, Anion Gap 4 L, BUN 24 H, Creatinine 0.61, Estim Creat Clear Calc 34.87, Est GFR (MDRD) Af Amer 120, Est GFR (MDRD) Non-Af 99, BUN/Creatinine Ratio 39.5 H, Glucose 128 H, Calcium 8.3 L Micro: Microbiology 08/26/22 14:04 Swab (Method) Nasal Screen MRSA/MSSA - Final Radiography Diagnostic Testing: Radiology Impression Hip/Pelvis X-Ray 09/08/22 08:47 IMPRESSION: Satisfactory arthroplasty changes. Electronically Signed: Oliver Riggs MD at 11:08 EST , Hip X-Ray 09/08/22 10:05 IMPRESSION: Satisfactory postop changes. Electronically Signed: Oliver Riggs MD at 10:48 EST , Physical Exam Const alert, oriented x3 and no apparent distress General Appearance: cooperative, comfortable and well kempt HEENT normocephalic Resp normal respiratory effort Extremity Extremity Narrative: Right lower extremity: Dressing is clean dry and intact. This is a new dressing from postoperatively. There is some blood noted at the perimeter however the dressing itself is not saturated question if this is dried blood from yesterday. Sensations intact to light touch saphenous, sural, superficial peroneal, deep peroneal, and tibial distributions Motors intact EHL, DF, PF calves are soft and supple Left calf is soft and supple Neuro Neuro Narrative: History of Parkinson's, mildly unsteady on feet while trying to stand for examination. Assessment & Plan Assessment/Plan (1) Essential hypertension: PLAN: Stable. Medicine consulted for medical management (2) Parkinsons disease: PLAN: Stable. Medicine consulted for medical management (3) S/P total right hip arthroplasty: PLAN: Postop day 1 right direct anterior total hip replacement 1. Continue physical therapy: Weightbearing as tolerated, activity as tolerated. Would recommend continuing therapy even if patient does demonstrate some drainage while she is up today. She is mildly unsteady on her feet trying to stand up for examination of her dressing. 2. DVT prophylaxis: Aspirin 81 mg twice daily for 4 weeks. 3. Pain control: Patient doing well on Tylenol and tramadol. 4. Wound: Dressing is clean and dry today. There appears to be some dried blood around the adhesive edges however nothing is saturated the dressing this morning. Based on drainage I would like to monitor the wound for another 24 hours prior to discharge home. 5. Hypertension: Medicine is consulted patient is resumed home medications at this time. 6. Parkinson's: Patient mildly unsteady on her feet while standing up. Would benefit from full course of therapy today prior to discharge home. Recommend monitoring her stability today and plan for discharge tomorrow if does well Disposition: We will keep the patient on the 24 hours as we monitor her wound and obtain therapy for stability. [facility] Office:
--- NOTE | 2022-09-09 10:11 | PN.HOSP_ITS ---
Subjective Subjective Feels well. No events overnight. Objective Data Objective Data Vital Signs: Vital Signs Temp Pulse Resp BP Pulse Ox O2 Del Method O2 Flow Rate 36.4 C L 57 L 18 145/64 H 99 Room Air 4 09/09/22 07:38 09/09/22 07:49 09/09/22 07:38 09/09/22 07:38 09/09/22 07:38 09/09/22 07:38 09/09/22 00:00 Oxygen Flow Rate (L/min) 4 Oxygen Delivery Method Room Air Weight: 55 kg Body Mass Index (BMI) 20.8 Intake & Output: Intake and Output for Last 24 Hours 09/07/22 09/08/22 09/09/22 23:59 23:59 23:59 Intake Total 4167 / 4167 50 / 50 Balance 4167 / 4167 50 / 50 Lab / Micro Data Result Diagrams: 09/09/22 06:52 09/09/22 06:52 Labs: Laboratory Results - last 24 hr 09/09/22 06:52: WBC 13.4 H, RBC 3.44 L, Hgb 10.8 L, Hct 32.8 L, MCV 95.3, MCH 31.4, MCHC 32.9, RDW Std Deviation 44.0 H, RDW Coeff of Larry 12.7, Plt Count 152, MPV 9.5 09/09/22 06:52: Sodium 136, Potassium 4.3, Chloride 104, Carbon Dioxide 28.0, Anion Gap 4 L, BUN 24 H, Creatinine 0.61, Estim Creat Clear Calc 34.87, Est GFR (MDRD) Af Amer 120, Est GFR (MDRD) Non-Af 99, BUN/Creatinine Ratio 39.5 H, Glucose 128 H, Calcium 8.3 L Micro: Microbiology 08/26/22 14:04 Swab (Method) Nasal Screen MRSA/MSSA - Final Radiography Diagnostic Testing: Radiology Impression Hip/Pelvis X-Ray 09/08/22 08:47 IMPRESSION: Satisfactory arthroplasty changes. Electronically Signed: Oliver Riggs MD at 11:08 EST , Hip X-Ray 09/08/22 10:05 IMPRESSION: Satisfactory postop changes. Electronically Signed: Oliver Riggs MD at 10:48 EST , Physical Exam Const alert and no apparent distress Constitutional Narrative: Up in chair eating breakfast Assessment & Plan Assessment/Plan (1) Osteoarthritis of right hip: PLAN: Status post right hip replacement. Management per orthopedics (2) Leukocytosis: PLAN: Likely reactive. In absence of any fever or any new symptoms, I do not feel that this is of any concern. PLAN: Plan Parkinson's disease: Continue with Sinemet History of abnormal stress tests: Has seen cardiology in the past. Reviewed d ocuments by Dr. Magallanes and recommends current management with aspirin, atorvastatin and metoprolol succinate. Hyperlipidemia: Continue with statin Thank you for the consult. The hospitalist service will follow along during this patient's hospitalization. Patient medically stable for discharge. Discussed with the patient's daughter at bedside. Patient medically stable for discharge. Will sign off but please do not hesitate to reach out if any concerns or additional questions arise. Charges/Coding Visit Charges Inpatient E&M: 02317 Subs Hosp L1
[2022-09-09] MEDS: traMADol 50 MG Tablet PO (15:19)
[2022-09-09] MEDS: Atorvastatin Calcium 10 MG Tablet PO (20:56)
[2022-09-10 02:37] VITALS: BP 129/60; PULSE 72; RESP 18; TEMP 37.2; O2SAT 92
[2022-09-10 02:52] VITALS: BP 129/60; PULSE 72; RESP 18; TEMP 37.2; O2SAT 92
[2022-09-10] MEDS: Carbidopa/Levodopa 25/100 Tablet PO ×2 (06:05→10:28)
[2022-09-10] MEDS: Acetaminophen 500 MG Tablet 1000 MG PO (06:05)
[2022-09-10 06:47] LABS: Absolute Lymphocyte Count 1.29 X10^3/uL (0.83-4.51); Absolute Neutrophil Count 7.3 X10^3/uL (2.0-7.7); Basophil# 0.02 X10^3/uL; Basophil% 0.2 % (0-1); Eosinophil# 0.09 X10^3/uL; Eosinophils% 0.9 % (0-5); Hematocrit 31.3 % (37-47); Hemoglobin 10.2 g/dL (12.0-15.0); Lymphocyte # 1.29 X10^3/ul (0.83-4.51); Lymphocyte % 13.3 % (19-41); Mean Corp Hgb Conc 32.6 g/dL (32-36); Mean Corpuscular Hgb 31.3 pg (27.0-32.0); Mean Platelet Vol. 9.6 fl (6.2-12.0); Monocyte# 0.99 X10^3/uL; Monocyte% 10.2 % (0-10); NRBC Flagged by Analyzer 0 % (0-5); Neutrophil # 7.26 X10^3/uL (2.7-7.7); Neutrophil % 75.2 % (47-70); Platelet Count 142 K/mm3 (150-450); RBC Distribution Width SD 46.5 fl (35.1-43.9); Red Blood Count 3.26 M/mm3 (4.2-5.4); White Blood Count 9.7 K/mm3 (4.4-11.0)
[2022-09-10 08:30] VITALS: BP 112/98; PULSE 73; RESP 18; TEMP 36.6; O2SAT 93
[2022-09-10] MEDS: Aspirin 81 MG TAB.CHEW PO (08:48)
[2022-09-10] MEDS: Multivitamins,Therapeutic Tablet 1 TABLET PO (08:49)
[2022-09-10] MEDS: Calcium Carb/Vitamin D 1 TABLET Tablet PO (08:49)
--- NOTE | 2022-09-10 09:24 | CASEMGMT ---
Addendum entered by Aminah Rendon 09/10/22 10:05: Spoke with , pt plans for outpt. REENA MULLER in to pt room, pt dtr provided with rx for outpt therapy. She states she already called and scheduled the appt for next Tuesday at noon. Pt dtr states she will be staying with the patient for a few days as well as pt will provide assistance. Pt and dtr deny further needs. Original Note: REENA MULLER in to pt room, pt sitting up in chair with dtr at bedside. Pt had been ambulating the halls with dtr. Pt states she still plans on doing outpt therapy at the [facility] but did not know if surgeon wanted her to do [facility] first. She will discuss when he sees her. REENA MULLER to check back.
--- NOTE | 2022-09-10 09:43 | PN.ORTHO_ITS ---
Objective Data Objective Data Vital Signs: Vital Signs Temp Pulse Resp BP Pulse Ox O2 Del Method O2 Flow Rate 99 F 72 18 129/60 H 92 Room Air 4 09/10/22 02:52 09/10/22 02:52 09/10/22 02:52 09/10/22 02:52 09/10/22 02:52 09/10/22 02:52 09/10/22 02:52 Oxygen Flow Rate (L/min) 4 Oxygen Delivery Method Room Air Weight: 121 lb 4.068 oz Body Mass Index (BMI) 20.8 Intake & Output: Intake and Output for Last 24 Hours 09/08/22 09/09/22 09/10/22 23:59 23:59 23:59 Intake Total 4167 / 4167 50 / 50 500 / 500 Balance 4167 / 4167 50 / 50 500 / 500 Lab / Micro Data Result Diagrams: 09/10/22 06:21 09/09/22 06:52 Labs: Laboratory Results - last 24 hr 09/10/22 06:21: WBC 9.7, RBC 3.26 L, Hgb 10.2 L, Hct 31.3 L, MCV 96.0, MCH 31.3, MCHC 32.6, RDW Std Deviation 46.5 H, RDW Coeff of Larry 13.0, Plt Count 142 L, MPV 9.6, Immature Gran % (Auto) 0.200, Neut % (Auto) 75.2 H, Lymph % (Auto) 13.3 L, [place] % (Auto) 10.2 H, Eos % (Auto) 0.9, Baso % (Auto) 0.2, Absolute Neuts (auto) 7.3, Absolute Lymphs (auto) 1.29, Nucleated RBC % 0 Micro: Microbiology 08/26/22 14:04 Swab (Method) Nasal Screen MRSA/MSSA - Final Assessment & Plan Assessment/Plan (1) Essential hypertension: PLAN: Stable. Medicine consulted for medical management (2) Parkinsons disease: PLAN: Stable. Medicine consulted for medical management (3) S/P total right hip arthroplasty: PLAN: Postop day 2 right direct anterior total hip replacement 1. Continue physical therapy: Weightbearing as tolerated, activity as tolerated. Daughter is at bedside. Patient is doing well they have gone ahead and scheduled a visit for onsite physical therapy in [place] next Wednesday to begin outpatient physical therapy. 2. DVT prophylaxis: Aspirin 81 mg twice daily for 4 weeks. Frequent ambulation. 3. Pain control: Patient doing well on Tylenol and requiring minimal tramadol. 4. Wound: Dressing is clean and dry today. Patient did well with therapy with no additional drainage. 5. Hypertension: Stable medicine is consulted patient is resumed home medi cations at this time. 6. Parkinson's: Mobility improved. Patient doing well with therapy. 7. Leukocytosis: Likely reactive from intraoperative steroids resolved at this time. Disposition: Plan is for patient to be discharged today. She has done well and would like to proceed with outpatient physical therapy. Her daughter is at the bedside and agrees with this plan. They have scheduled for next Tuesday. They will be given home exercises to do in the intermediate. Plan for discharge home today. [facility] Office:
--- NOTE | 2022-09-10 10:01 | PCM.DC.SUM ---
Providers Date of Admission: 09/08/22 Primary Care Physician: Dr. Avery Del Rosario MD Consultations 09/08/22 07:00 Consult: Hospitalist Routine Consulting Provider: Orlin Leblanc Reason for Consult: post op med management EMERGENT Consult: No MD Notified: Yes Date Notified: 09/08/22 Time Notified: 11:51 Method of Notification: via spok Reason For Visit: RT DIRECT ANTERIOR TOTAL HIP Diagnosis Discharge Diagnosis (1) Essential hypertension: Status: Acute Code(s): I10 - Essential (primary) hypertension Plan: Stable. Medicine consulted for medical management (2) Parkinsons disease: Status: Acute Code(s): G20 - Parkinson's disease Plan: Stable. Medicine consulted for medical management (3) S/P total right hip arthroplasty: Status: Acute Code(s): Z96.641 - Presence of right artificial hip joint Plan: Postop day 2 right direct anterior total hip replacement 1. Continue physical therapy: Weightbearing as tolerated, activity as tolerated. Daughter is at bedside. Patient is doing well they have gone ahead and scheduled a visit for onsite physical therapy in [place] next Tuesday to begin outpatient physical therapy. 2. DVT prophylaxis: Aspirin 81 mg twice daily for 4 weeks. Frequent ambulation. 3. Pain control: Patient doing well on Tylenol and requiring minimal tramadol. 4. Wound: Dressing is clean and dry today. Patient did well with therapy with no additional drainage. 5. Hypertension: Stable medicine is consulted patient is resumed home medications at this time. 6. Parkinson's: Mobility improved. Patient doing well with therapy. 7. Leukocytosis: Likely reactive from intraoperative steroids resolved at this time. Disposition: Plan is for patient to be discharged today. She has done well and would like to proceed with outpatient physical therapy. Her daughter is at the bedside and agrees with this plan. They have scheduled for next Tuesday. They will be given home exercises to do in the intermediate. Plan for discharge home today. [facility] Office: Medications at Discharge Home Medications aspirin 81 mg tablet,delayed release (Adult Low Dose Aspirin) 81 mg PO DAILY 04/23/22 atorvastatin 10 mg tablet 10 mg PO QHS 04/23/22 calcium carbonate 600 mg-vitamin D3 10 mcg (400 unit) chewable tablet (Calcium 600 with Vitamin D3) 1 tab PO DAILY 04/23/22 carbidopa 25 mg-levodopa 100 mg tablet (Sinemet) 1 tab PO .5xDaily 04/23/22 nifedipine 30 mg tablet,extended release 30 mg PO DAILY 04/23/22 omega 7-jdi-sff-fish oil 300 mg-1,000 mg capsule (Fish Oil) 1 cap PO DAILY 04/23/22 raloxifene 60 mg tablet (Evista) 60 mg PO DAILY 04/23/22 safinamide 100 mg tablet (Xadago) 100 mg PO DAILY 04/23/22 metoprolol succinate 25 mg tablet,extended release 24 hr 25 mg PO DAILY #90 tabs 07/29/22 multivitamin (Daily Multi-Vitamin tablet) 1 tab PO DAILY 07/29/22 acetaminophen 500 mg tablet 1,000 mg PO Q8 #0 tabs 09/10/22 aspirin 81 mg chewable tablet 81 mg PO BIDCM #0 tabs 09/10/22 famotidine 20 mg tablet 20 mg PO DAILY 28 days #28 tabs 09/10/22 meloxicam 7.5 mg tablet 7.5 mg PO BID 30 days #60 tabs 09/10/22 nut.tx.comp. immune systm,reg 0.08 gram-1.4 kcal/mL oral liquid (Ensure Surgery) 237 ml PO TIDCM #0 mL 09/10/22 sennosides 8.6 mg-docusate sodium 50 mg tablet (Stool Softener-Stimulant Laxative) 2 tab PO BID 7 days #28 tabs 09/10/22 tramadol 50 mg tablet 50 - 100 mg PO Q6H PRN PRN Pain Score 4-10 5 days #30 tabs 09/10/22 Hospital Course Operations total hip replacement Procedures None Summary of Care Provided Hospital Course: Patient was admitted to the hospital September 08 after right total replacement. She did well postoperatively however she had drainage and some instability due to her Parkinson's with physical therapy initially. She spent 48 hours in the hospital and was ready for discharge on 1124. She did well with her 2 days of therapy in the hospital and elected to be did be discharged with outpatient physical therapy. She had no further drainage after the initial 24 hours. Physical Exam Const alert and oriented x3 Extremity Extremity Narrative: Right lower extremity: Dressing is clean dry and intact Sensations intact to light touch saphenous, sural, superficial peroneal, deep peroneal, and tibial distributions Motors intact EHL, DF, PF calves are soft and supple Weight / BMI Weight Weight: 121 lb 4.068 oz Body Mass Index (BMI) 20.8 ABG / Lab / Microbiology Data Result Diagrams: 09/10/22 06:21 09/09/22 06:52 Laboratory: Laboratory Results - last 24 hr 09/10/22 06:21: WBC 9.7, RBC 3.26 L, Hgb 10.2 L, Hct 31.3 L, MCV 96.0, MCH 31.3, MCHC 32.6, RDW Std Deviation 46.5 H, RDW Coeff of Larry 13.0, Plt Count 142 L, MPV 9.6, Immature Gran % (Auto) 0.200, Neut % (Auto) 75.2 H, Lymph % (Auto) 13.3 L, Burnet % (Auto) 10.2 H, Eos % (Auto) 0.9, Baso % (Auto) 0.2, Absolute Neuts (auto) 7.3, Absolute Lymphs (auto) 1.29, Nucleated RBC % 0 Microbiology: Microbiology 08/26/22 14:04 Swab (Method) Nasal Screen MRSA/MSSA - Final D/C Instructions Discharge Diet: No restrictions May shower in (days): 3 (only if incision is dry and without drainage. Do NOT soak/submerge in tub/pool/jo/stream/hot tub.) May resume sexual activity in: 6-8 weeks Additional Activity Instructions: Wear elastic stockings for 2 weeks. DO NOT use alcohol with narcotic pain medication. DO NOT make important decisions while taking narcotic medication. If you have problems with taking your medication (rash, itching, nausea, etc.) call the office at once. Call your doctor if your incision/area has: Increased Pain/ Swelling, Increased Redness and Foul Smelling Discharge Call your doctor if you observe: Fever of 101 or Higher Remove Dressing in: 3 days Cleanse incision/area with: Soap & Water and Keep Dressing Clean & Dry Additional Dressing/Incision Instructions: If incision is clean dry and intact may leave the wound open to air and continue showering. If there is continued drainage continue daily dry dressing changes and keep incision clean dry and intact until there is no drainage. Please Follow Up With: Marlene Taveras PA When: September 24, 2022 at 1:15 PM Meaningful Use Info Meaningful Use Diagnoses (Choose all that apply): None applicable Discharge Plan Admission Admit Date/Time: 09/08/22 06:59 Primary Reason for Your Visit: R SOLIS Attending Provider: Alex Mendez Primary Care Provider: Avery Del Rosario Chi Consulting Providers: Orlin Leblanc Discharge Orders/Prescriptions Prescriptions: New sennosides-docusate sodium [Stool Softener-Stimulant Laxat] 8.6-50 mg Tablet 2 tab PO BID 7 Days Qty: 28 0RF tramadol 50 mg Tablet 50 - 100 mg PO Q6H PRN PRN (Reason: Pain Score 4-10) 5 Days Qty: 30 0RF acetaminophen 500 mg Tablet 1,000 mg PO Q8 Qty: 0 0RF meloxicam 7.5 mg Tablet 7.5 mg PO BID 30 Days Qty: 60 1RF famotidine 20 mg Tablet 20 mg PO DAILY 28 Days Qty: 28 0RF aspirin 81 mg Tablet,Chewable 81 mg PO BIDCM Qty: 0 0RF Ensure Surgery 0.08-1.4 gram-kcal/mL Liquid 237 ml PO TIDCM Qty: 0 0RF Continued Calcium 600 with Vitamin D3 600 mg-10 mcg (400 unit) tablet,chewable 1 tab PO DAILY raloxifene [Evista] 60 mg tablet 60 mg PO DAILY nifedipine 30 mg tablet extended release 30 mg PO DAILY atorvastatin 10 mg tablet 10 mg PO QHS carbidopa-levodopa [Sinemet] 25-100 mg tablet 1 tab PO .5xDaily Xadago 100 mg tablet 100 mg PO DAILY Rx Instructions: administer at the same time(s) each day multivitamin [Daily Multi-Vitamin] Tablet 1 tab PO DAILY metoprolol succinate 25 mg tablet extended release 24 hr 25 mg PO DAILY Qty: 90 3RF Held omega 2-hgy-stq-fish oil [Fish Oil] 300-1,000 mg capsule 1 cap PO DAILY Hold Instructions: Resume on 09/22/22. aspirin [Adult Low Dose Aspirin] 81 mg tablet,delayed release (DR/EC) 81 mg PO DAILY Hold Instructions: Resume on 10/06/22. Referrals / Follow Up: Alex Mendez MD [Med Staff - Active Staff] - (Scheduled follow-up September 24, 2022 at 1:15 PM with Marlene Taveras PA-C) Avery Del Rosario Chi, MD [Primary Care Provider] - Disposition Disposition (needs filled in before D/C Order can be placed): Home, Self Care
--- NOTE | 2022-09-10 10:26 | CASEMGMT ---
REENA CM in to discuss VARNER form with patient. RN CM explained VARNER form, patient voiced understanding. Pt signed form and filed in chart. Pt provided with a copy of signed VARNER form. Patient had no further questions or concerns at this time.
[2022-09-10 10:28] VITALS: PULSE 68
[2022-09-10] MEDS: NIFEdipine 30 MG Tablet PO (10:28)
[2022-09-10] MEDS: Famotidine 20 MG Tablet PO (10:28)
[2022-09-10] MEDS: Senna/Docusate Sodium 1 Tablet 2 TABLET PO (10:28)
[2022-09-10] MEDS: Metoprolol(XL)Succ 25 MG Tablet PO (10:28)
[2022-09-10] MEDS: Raloxifene HCl 60 MG Tablet PO (10:29)
[2022-09-10] MEDS: Meloxicam 7.5 MG Tablet PO (10:29)
[2022-09-10 12:00] VITALS: BP 112/98; PULSE 68; RESP 18; TEMP 36.6; O2SAT 93
[2022-09-10 12:11] VITALS: BP 134/56; PULSE 70; RESP 18; TEMP 36.8; O2SAT 98
== END 2022-09-10 13:01 | disposition home or self-care (01) ==
LOC: SDC 11:09 → MS3 11:09
PROVIDERS: Anesthesiology; Admitting Provider Specialist; PCP Family Medicine Geriatric Medicine; Referring Provider Specialist; Visit Provider Specialist
PROC: (CPT 27284; principal; 2022-09-08 07:35)
DX: M16.11 Unilateral primary osteoarthritis, right hip (principal); G20 Parkinson's disease; I44.7 Left bundle-branch block, unspecified; I10 Essential (primary) hypertension; E78.00 Pure hypercholesterolemia, unspecified; Z79.899 Other long term (current) drug therapy; Z79.82 Long term (current) use of aspirin; Z86.2 Personal history of diseases of the blood and blood-forming organs and certain disorders involving the immune mechanism
CPT/HCPCS: 27130; 01214; 36415; 73501; 73502; 76000; 80048; 80076; 82962; 83735; 85025; 85027; 85610; 85730; 87081; 88305; 88307; 88311; 96361; 96365; 96366; 97110; 97116; 97162; 97166; 97530; 97535; 99218; 99251; C1776; J7120; A4216; G0378; G0463; J2405; J3475

== ENCOUNTER → 2023-03-10 | Outpatient (CLI) | payer MEDICARE, SELFPAY ==
[2023-03-10 13:22] LABS: Absolute Lymphocyte Count 1.55 X10^3/uL (0.83-4.51); Absolute Neutrophil Count 3.7 X10^3/uL (2.0-7.7); Basophil# 0.04 X10^3/uL; Basophil% 0.7 % (0-1); Eosinophil# 0.05 X10^3/uL; Eosinophils% 0.9 % (0-5); Hematocrit 45.8 % (37-47); Hemoglobin 14.4 g/dL (12.0-15.0); Lymphocyte # 1.55 X10^3/ul (0.83-4.51); Lymphocyte % 26.5 % (19-41); Mean Corp Hgb Conc 31.4 g/dL (32-36); Mean Corpuscular Hgb 29.7 pg (27.0-32.0); Mean Corpuscular Volume 94.4 fL (81-99); Mean Platelet Vol. 9.5 fl (6.2-12.0); Monocyte# 0.46 X10^3/uL; Monocyte% 7.8 % (0-10); NRBC Flagged by Analyzer 0 % (0-5); Neutrophil # 3.74 X10^3/uL (2.7-7.7); Neutrophil % 63.8 % (47-70); Platelet Count 230 K/mm3 (150-450); RBC Distribution Width CV 13.7 % (11.6-14.6); RBC Distribution Width SD 47.7 fl (35.1-43.9); Red Blood Count 4.85 M/mm3 (4.2-5.4); White Blood Count 5.9 K/mm3 (4.4-11.0)
[2023-03-10 13:33] LABS: Vitamin D,25 Hydroxy 57.3 ng/mL
[2023-03-10 14:37] LABS: AST(SGOT) 25 U/L (15-37); Alanine Aminotransfer ALT/SGPT 9 U/L (13-56); Albumin, Serum 3.8 g/dL (3.2-5.0); Alkaline Phosphatase 52 U/L (45-117); Anion Gap 4 (5-15); BUN 15 mg/dL (7-18); BUN/Creat Ratio 19.9 RATIO (10-20); Calcium,Total 9.2 mg/dL (8.5-10.1); Chloride 103 mmol/L (98-107); Creatinine, Serum 0.75 mg/dL (0.55-1.02); EST Glomerular Filtration Rate 77 mL/min (>60); Est Glom Filt Rate - Afr Amer 94 mL/min (>60); Globulin 3.8 g/dL (2.2-4.2); Glucose 84 mg/dL (74-106); Potassium 3.8 mmol/L (3.5-5.1); Protein, Total 7.6 g/dL (6.4-8.2); Sodium Level 140 mmol/L (136-145)
== END | disposition home or self-care (01) ==
LOC: POLAB3 11:24
PROVIDERS: PCP Family Medicine Geriatric Medicine; Visit Provider Family Medicine Geriatric Medicine
DX: E55.9 Vitamin D deficiency, unspecified (principal); I10 Essential (primary) hypertension
CPT/HCPCS: 36415; 80053; 82306; 84443; 85025

== ENCOUNTER → 2023-06-01 | Outpatient (CLI) | payer MEDICARE, SELFPAY ==
[2023-06-01 16:50] LABS: Absolute Lymphocyte Count 1.18 X10^3/uL (0.83-4.51); Absolute Neutrophil Count 2.7 X10^3/uL (2.0-7.7); Basophil# 0.03 X10^3/uL; Basophil% 0.7 % (0-1); Eosinophil# 0.06 X10^3/uL; Eosinophils% 1.3 % (0-5); Hematocrit 43.2 % (37-47); Hemoglobin 14.1 g/dL (12.0-15.0); Lymphocyte # 1.18 X10^3/ul (0.83-4.51); Lymphocyte % 26.3 % (19-41); Mean Corp Hgb Conc 32.6 g/dL (32-36); Mean Corpuscular Hgb 30.1 pg (27.0-32.0); Mean Corpuscular Volume 92.3 fL (81-99); Mean Platelet Vol. 9.2 fl (6.2-12.0); Monocyte# 0.47 X10^3/uL; Monocyte% 10.5 % (0-10); NRBC Flagged by Analyzer 0 % (0-5); Neutrophil # 2.72 X10^3/uL (2.7-7.7); Neutrophil % 60.8 % (47-70); Platelet Count 203 K/mm3 (150-450); RBC Distribution Width CV 12.6 % (11.6-14.6); RBC Distribution Width SD 42.8 fl (35.1-43.9); Red Blood Count 4.68 M/mm3 (4.2-5.4); White Blood Count 4.5 K/mm3 (4.4-11.0)
[2023-06-01 17:06] LABS: Vitamin D,25 Hydroxy 71.2 ng/mL
[2023-06-01 17:17] LABS: ALB/GLOB Ratio 0.9 RATIO (0.9-2.4); AST(SGOT) 17 U/L (15-37); Alanine Aminotransfer ALT/SGPT 10 U/L (13-56); Albumin, Serum 3.6 g/dL (3.2-5.0); Alkaline Phosphatase 61 U/L (45-117); Anion Gap 5 (5-15); BUN 25 mg/dL (7-18); BUN/Creat Ratio 32.6 RATIO (10-20); Chloride 104 mmol/L (98-107); Creatinine, Serum 0.77 mg/dL (0.55-1.02); EST Glomerular Filtration Rate 76 mL/min (>60); Est Glom Filt Rate - Afr Amer 92 mL/min (>60); Globulin 3.8 g/dL (2.2-4.2); Glucose 84 mg/dL (74-106); Protein, Total 7.4 g/dL (6.4-8.2); Sodium Level 137 mmol/L (136-145); Thyroid Stim Hormone (TSH) 1.74 uIU/mL (0.358-3.74)
== END | disposition home or self-care (01) ==
LOC: POLAB3 13:02
PROVIDERS: PCP Family Medicine Geriatric Medicine; Visit Provider Family Medicine Geriatric Medicine
DX: I10 Essential (primary) hypertension (principal); E55.9 Vitamin D deficiency, unspecified
CPT/HCPCS: 36415; 80053; 82306; 84443; 85025

== ENCOUNTER 2023-09-01 09:42 | Day surgery (SDC) | payer MEDICARE, SELFPAY ==
[2023-09-01] VITALS (8 sets, daily range): BP systolic 118–179; BP diastolic 59–81; PULSE 56–65; RESP 16–18; TEMP 36.1–36.8; O2SAT 65–100; BMI 20.9
[2023-09-01] MEDS: Lactated Ringers 1,000 ML 15 ML IV (10:00)
[2023-09-01 10:25] LABS: Hematocrit 43.4 % (37-47); Hemoglobin 13.9 g/dL (12.0-15.0); Mean Corpuscular Hgb 29.7 pg (27.0-32.0); Mean Corpuscular Volume 92.7 fL (81-99); Mean Platelet Vol. 8.8 fl (6.2-12.0); Platelet Count 196 K/mm3 (150-450); RBC Distribution Width CV 13.4 % (11.6-14.6); RBC Distribution Width SD 45.6 fl (35.1-43.9); Red Blood Count 4.68 M/mm3 (4.2-5.4); White Blood Count 5.1 K/mm3 (4.4-11.0)
[2023-09-01 10:41] LABS: Anion Gap 6 (5-15); BUN 24 mg/dL (7-18); BUN/Creat Ratio 29.7 RATIO (10-20); Calcium,Total 9.1 mg/dL (8.5-10.1); Chloride 106 mmol/L (98-107); Creatinine, Serum 0.81 mg/dL (0.55-1.02); EST Glomerular Filtration Rate 71 mL/min (>60); Est Glom Filt Rate - Afr Amer 86 mL/min (>60); Estimated Creatinine Clearance 42.25 ml/min; Glucose 86 mg/dL (74-106); Potassium 4.2 mmol/L (3.5-5.1); Sodium Level 140 mmol/L (136-145)
[2023-09-01] MEDS: Cefazolin 2 GM in 0.9% Normal Saline (100mL Bag) 100 ML IV (10:59)
--- NOTE | 2023-09-01 12:53 | DCINST_ITS ---
Discharge Instructions Diet Discharge Diet: No restrictions Activity Discharge Activity: Return to Normal Activity and May Shower Dressing / Incision Call your doctor if you observe: Fever of 101 or Higher, Inability to urinate and Inability to have a bowel movement Follow Up Care Please Follow Up With: Brianna Gomez MD When: The office will call the patient to make arrangements for follow-up Test Results: Test results from this visit will be discussed in further detail at your follow- up appointment, if applicable. Discharge Plan Admission Attending Provider: Brianna Gomez Primary Care Provider: Avery Del Rosario Chi Discharge Orders/Prescriptions Prescriptions: Continued Rytary 23.75-95 mg capsule, extended release 2 cap PO TID cholecalciferol (vitamin D3) 125 mcg (5,000 unit) tablet 125 mcg PO DAILY PreserVision AREDS-2 250-90-40-1 mg capsule 1 tab PO QAM AND QHS fesoterodine 8 mg tablet extended release 24 hr 8 mg PO DAILY Patient Comments: TAKE 1 TABLET BY MOUTH EVERY DAY sennosides-docusate sodium [Stool Softener-Stimulant Laxat] 8.6-50 mg tablet 2 tab PO BID PRN (Reason: constipation) cephalexin 500 mg capsule Patient Comments: TAKE 1 CAPSULE BY MOUTH THREE TIMES A DAY metoprolol succinate 25 mg tablet extended release 24 hr 25 mg PO DAILY Qty: 30 11RF Referrals / Follow Up: Avery Del Rosario Chi, MD [Primary Care Provider] - Disposition Disposition (needs filled in before D/C Order can be placed): Home, Self Care
--- NOTE | 2023-09-01 12:54 | OP.PCM_ITS ---
Report of Operation Date of Procedure: 09/01/23 Pre-Operative Diagnosis: Intrinsic sphincter deficiency, stress urinary inconti nence Post-Operative Diagnosis: Same Surgery/Procedure Performed:: Cystoscopy, Bulkamid injection Surgeon: Brianna Gomez Type of Anesthesia: MAC Description of Procedure: The patient is an 88-year-old female with significant ISD and stress incontinence. She presents for cystoscopy with Bulkamid injection. Informed consent was obtained. Patient was taken to the operating room and placed on the operating room table. Anesthesia monitored the head, neck, airway, IV access and vital signs throughout the case. Once anesthesia was appropriately ministered, the patient was prepped and draped in usual sterile fashion. The Bulkamid scope was inserted through the urethra and the sheath was used for insertion of the needle to the second centimeter marianela. When this was at the bladder neck the entire scope was pulled back until the tip of the needle was located at the bladder neck. Starting in the 7 o'clock position below the mucosa, the needle with the bevel towards the lumen was inserted to 1 cm and approximately 0.4 cc of Bulkamid was injected creating a pillow. This procedure was then repeated at the 5, 2, 10 o'clock positions. There was good coaptation of the tissue and all pillows appeared to be at the same level in the urethra. The patient was then awakened and taken to the recovery room in good condition. There were no complications during this procedure. Complications None Admit VTE Documentation VTE Present on Admission: Yes VTE Mechan Device Prophylaxis: SCD's VTE Pharm Prophylaxis ordered?: No Reason prophylaxis not ordered:: Treatment Not Indicated
--- NOTE | 2023-09-01 16:50 | SUR.PHASEII ---
12 Fr CANTRELL CATHETER PLACED BY DR LOPEZ, CANTRELL CATHETER CARE, TEACHING, & DISCHARGE INSTRUCTIONS GIVEN. PATIENT & DAUGHTER VERBALIZE UNDERSTANDING. DAUGHTER DEMONSTRATES ABILITY TO EMPTY CATHETER BAG SUCCESSFULLY.
== END 2023-09-01 17:10 | disposition home or self-care (01) ==
LOC: SDC 09:47 → AC 09:48
PROVIDERS: PCP Family Medicine Geriatric Medicine; Referring Provider Urology; Visit Provider Urology
PROC: 3E0K8GC Introduction of Other Therapeutic Substance into Genitourinary Tract, Via Natural or Artificial Opening Endoscopic (ICD-10-PCS; CPT 52287; principal; 2023-09-01 11:10)
DX: N36.42 Intrinsic sphincter deficiency (ISD) (principal); N39.46 Mixed incontinence; G20.A1 Parkinson's disease without dyskinesia, without mention of fluctuations; I10 Essential (primary) hypertension; Z79.899 Other long term (current) drug therapy
CPT/HCPCS: 51715; 00910; 80048; 85027; J7120; A4216; J2405

== ENCOUNTER → 2023-09-30 | Outpatient (CLI) | payer MEDICARE, SELFPAY ==
--- NOTE | 2023-09-30 10:58 | BI_ITS ---
MAMMOGRAPHY - BILATERAL SCREENING REASON FOR EXAM: Female, 88 years old. Routine annual screening examination. PERTINENT HISTORY: Non-contributory. TECHNIQUE: Digital bilateral breast wayne (3D mammographic acquisition) in the CC and MLO projections. 2-D mediolateral oblique (MLO) and craniocaudad (CC) views of both breasts were obtained. CAD: Full Field Digital Mammography with Computer Added Detection was performed. COMPARISON: Comparison is made with prior examination dated September 03, 2022. FINDINGS: Breast Composition: The breasts are heterogeneously dense, which may obscure small masses. There are no dominant masses or suspicious calcifications. Stable benign-appearing left breast calcifications. No other significant abnormalities are identified. There has been no significant change since the prior study. BI/SCRN MAMM (CAD)W/WAYNE BILAT IMPRESSION: Stable bilateral screening mammogram. Yearly follow-up mammogram recommended. (A) ASSESSMENT CATEGORY: BIRADS Category 2: Benign. A letter regarding these results will be sent to the patient by the facility within 30 days. Approximately 10% of breast cancers are not detected by mammography. A normal mammogram should not delay biopsy of a clinically suspicious abnormality. [id number] Electronically Signed: Allan Gonzalez MD at 13:36 EST ,
== END | disposition home or self-care (01) ==
LOC: OPBI 10:55
PROVIDERS: PCP Family Medicine Geriatric Medicine; Referring Provider Family Medicine Geriatric Medicine; Visit Provider Family Medicine Geriatric Medicine
DX: Z12.31 Encounter for screening mammogram for malignant neoplasm of breast (principal)
CPT/HCPCS: 77063; 77067

== ENCOUNTER → 2024-01-23 | Outpatient (CLI) | payer MEDICARE, SELFPAY | END | disposition home or self-care (01) | LOC: CVS 08:43 | PROVIDERS: PCP Family Medicine Geriatric Medicine; Referring Provider Nurse Practitioner Gerontology; Visit Provider Nurse Practitioner Gerontology | DX: I10 Essential (primary) hypertension (principal) | CPT/HCPCS: 93788 ==

== ENCOUNTER → 2024-03-21 | Outpatient (CLI) | payer MEDICARE, SELFPAY ==
[2024-03-21 11:37] LABS: Absolute Lymphocyte Count 1.12 X10^3/uL (0.83-4.51); Absolute Neutrophil Count 3.9 X10^3/uL (2.0-7.7); Basophil# 0.03 X10^3/uL; Basophil% 0.6 % (0-1); Eosinophil# 0.06 X10^3/uL; Eosinophils% 1.1 % (0-5); Hematocrit 42.4 % (37-47); Hemoglobin 13.5 g/dL (12.0-15.0); Lymphocyte # 1.12 X10^3/ul (0.83-4.51); Lymphocyte % 20.6 % (19-41); Mean Corp Hgb Conc 31.8 g/dL (32-36); Mean Corpuscular Hgb 29.7 pg (27.0-32.0); Mean Corpuscular Volume 93.2 fL (81-99); Mean Platelet Vol. 9.1 fl (6.2-12.0); Monocyte# 0.34 X10^3/uL; Monocyte% 6.2 % (0-10); NRBC Flagged by Analyzer 0 % (0-5); Neutrophil # 3.88 X10^3/uL (2.7-7.7); Neutrophil % 71.1 % (47-70); Platelet Count 206 K/mm3 (150-450); RBC Distribution Width CV 13.2 % (11.6-14.6); RBC Distribution Width SD 45.1 fl (35.1-43.9); Red Blood Count 4.55 M/mm3 (4.2-5.4); White Blood Count 5.5 K/mm3 (4.4-11.0)
[2024-03-21 12:21] LABS: Anion Gap 4 (5-15); BUN 26 mg/dL (7-18); BUN/Creat Ratio 29.5 RATIO (10-20); Calcium,Total 9.2 mg/dL (8.5-10.1); Chloride 105 mmol/L (98-107); Creatinine, Serum 0.88 mg/dL (0.55-1.02); EST Glomerular Filtration Rate 64 mL/min (>60); Est Glom Filt Rate - Afr Amer 78 mL/min (>60); Glucose 143 mg/dL (74-106); Sodium Level 138 mmol/L (136-145); Thyroid Stim Hormone (TSH) 1.13 uIU/mL (0.358-3.74)
== END | disposition home or self-care (01) ==
LOC: LAB 11:02
PROVIDERS: PCP Family Medicine Geriatric Medicine; Referring Provider Nurse Practitioner Gerontology; Visit Provider Nurse Practitioner Gerontology
DX: R00.2 Palpitations (principal); R53.83 Other fatigue
CPT/HCPCS: 36415; 80048; 84443; 85025

== ENCOUNTER → 2024-06-05 | Outpatient (CLI) | payer MEDICARE, SELFPAY ==
[2024-06-05 13:29] LABS: Absolute Lymphocyte Count 1.34 X10^3/uL (0.83-4.51); Absolute Neutrophil Count 2.5 X10^3/uL (2.0-7.7); Basophil# 0.02 X10^3/uL; Basophil% 0.5 % (0-1); Eosinophil# 0.01 X10^3/uL; Eosinophils% 0.2 % (0-5); Hematocrit 43.2 % (37-47); Hemoglobin 13.5 g/dL (12.0-15.0); Lymphocyte # 1.34 X10^3/ul (0.83-4.51); Lymphocyte % 30.9 % (19-41); Mean Corp Hgb Conc 31.3 g/dL (32-36); Mean Corpuscular Hgb 28.9 pg (27.0-32.0); Mean Corpuscular Volume 92.5 fL (81-99); Mean Platelet Vol. 9.2 fl (6.2-12.0); Monocyte% 11.5 % (0-10); NRBC Flagged by Analyzer 0 % (0-5); Neutrophil # 2.46 X10^3/uL (2.7-7.7); Neutrophil % 56.7 % (47-70); Platelet Count 198 K/mm3 (150-450); RBC Distribution Width CV 13.3 % (11.6-14.6); RBC Distribution Width SD 45.4 fl (35.1-43.9); Red Blood Count 4.67 M/mm3 (4.2-5.4); White Blood Count 4.3 K/mm3 (4.4-11.0)
[2024-06-05 14:02] LABS: Vitamin D,25 Hydroxy 85.6 ng/mL
[2024-06-05 14:18] LABS: ALB/GLOB Ratio 0.8 RATIO (0.9-2.4); AST(SGOT) 34 U/L (15-37); Alanine Aminotransfer ALT/SGPT 12 U/L (13-56); Albumin, Serum 3.4 g/dL (3.2-5.0); Alkaline Phosphatase 72 U/L (45-117); Anion Gap 3 (5-15); BUN 27 mg/dL (7-18); BUN/Creat Ratio 30.9 RATIO (10-20); Chloride 106 mmol/L (98-107); Creatinine, Serum 0.87 mg/dL (0.55-1.02); EST Glomerular Filtration Rate 65 mL/min (>60); Est Glom Filt Rate - Afr Amer 79 mL/min (>60); Globulin 4.1 g/dL (2.2-4.2); Glucose 111 mg/dL (74-106); Potassium 3.7 mmol/L (3.5-5.1); Protein, Total 7.5 g/dL (6.4-8.2); Sodium Level 138 mmol/L (136-145)
== END | disposition home or self-care (01) ==
LOC: POLAB3 13:05
PROVIDERS: PCP Family Medicine Geriatric Medicine; Visit Provider Family Medicine Geriatric Medicine
DX: E55.9 Vitamin D deficiency, unspecified (principal); I10 Essential (primary) hypertension
CPT/HCPCS: 36415; 80053; 82306; 84443; 85025

== ENCOUNTER 2024-11-02 12:00 | Outpatient (RCR) | payer MEDICARE, SELFPAY ==
--- NOTE | 2024-08-14 15:31 | HP.SP.EV_ITS ---
Visit History Visit Info Date of Eval: 08/14/24 Visit: 1 [employer]S Helper: MARTHA History Attending Doctor: ZURI Referring Doctor: ZURI Reason for Referral: [facility] Date of Onset of Diagnosis: 2004 Previous speech therapy: Yes Results: She completed Speak Out program approximately 2 years ago. Medications related to this diagnosis: Rytary 3x daily. Smoking Status: Never smoker Diagnosis Diagnosis: Parkinson's Disease. Pain Is pain an issue with your current prescribed condition?: No Personal Preferred language: Persian Patient Allergies Allergies Allergies: Allergies amoxicillin Allergy (Unknown, Verified 06/20/24 09:27) Hives tetracycline Allergy (Unknown, Verified 06/20/24 09:27) Rash Subjective Dysphagia Symptoms Reported Symptoms/Problems with: Coughing and Difficulty Swallowing Liquids Comments Patient reported: -: Patient reported that she coughs when drinking. She had repeated throat clearing during the evaluation before any oral intake. She took sips of liquid for dry throat during voice evaluation with noted continued throat clearing. Dysphagia evaluation is warranted. Subjective Dysarthria/Motor Subjective Subjective: Patient states she isn't as clear in speech as she was previously. Objective Dysarthira/Motor Speech Intelligibility Conversation: WFL Volume Volume: Moderate Sounds Sounds in Error: No consistent sound noted in error. She appeared to have overall reduced oral movements during speech which is common in patients with Parkinson's Disease. Observation Observation of Apraxia of Speech: No Oral Groping for Placement: No Inconsistent Errors: No Subjective Voice Informal Questioner Are you a talker: Less than average Do you clear your throat: More than average Do you cough: More than average How often do you use the telephone: Average Medications Mediations: Rytary Objective Voice Date of Diagnosis Date of diagnosis: 2004 Previous Speech Therapy (If yes, describe): Yes Details of therapy: Speak Out program approximately 2 years ago. Medications Familiar with on/off effect: No Implantation Deep brain implantation (If yes, answer next question): No Objective data Objective Data: Objective data: Sound pressure level (SPL acoustic correlation of vocal loudness) was measured with a sound level meter at a distance of 40 cm from the patient's mouth. Average conversational loudness is 70-80 dB and sustained phonation duration is 15 to 20 seconds for a typical adult. Sustained Phonation Intensity (dB SPL): 78 Sustained Phonatin duration (seconds): 17 Is the individual stimulable to increase vocal intensity: Yes Vocal Intensity at Conversational Level (dB SPL): 59.9 Subjective Clinical Impression Non-Phonatory Behaviors/Respiration Reduced loudness or vocal weakness: Present Throat clearing/coughing: Present Reference: Neuro-QoL instrument HDQLIFE - Speech Difficulties In the past 7 days. It was difficult for other people to understand me.: Often Is was difficult to speak clearly?: Often In the past 7 days.. How often did you limit your social activites because you had difficulty speaking?: Rarely In the past 7 days... I had trouble speaking.: A little bit I was frustrated by my speech difficulties.: A little bit How much DIFFICULTY do you have... ...saying what you want to say?: A little difficulty Score HDQLIFE Speech Difficulties Raw Score: 16 HDQLIFE Speech Difficulties T - Score: 56 Radiation Oncology Patient Plan Plan Plan: A vocal intensity based intervention approach applying LSVT principles to improve speech intelligibility will be used. Given the progressive nature of primary diagnosis, It is not anticipated for a full return to pre-morbid level of functioning, though will expect to achieve gains in speech intelligibility as well as maintain current level of functioning. To achieve this, the patient will require continued skilled speech-language intervention not only through the current intervention cycle but will likely benefit from repeated intervention cycles to maintain communication efficiency. Recommendations Treatment Warranted: Voice Progress Prognosis: Good Frequency Frequency: 2x /Week Duration: 6 Weeks Visits in this POC: 12 Goal #1-5 Goal #1: Patient will increase vocal loudness to reach a target sound pressure level of 75 dB BLOOD OR BLOOD BANK TECHNICIAN with 1 cue during reading at the word and sentence level, which will help increase vocal respiratory support for functional communication. Goal #2: Patient will increase vocal loudness to reach a target sound pressure level of 70 dB BLOOD OR BLOOD BANK TECHNICIAN with 1 cue during conversation for functional communication. Goal #3: the patient will independently demonstrate and utilize recommended compensatory articulation techniques (increased vocal intensity, reduced rate of speech, over-articulation) to facilitate improved speech intelligibility during expressive communication attempts with both familiar and unfamiliar listeners to facilitate highest level of independent functioning within the home environment and community independently / with less than 2 cues during session, in 2 out of 3 sessions. Goal #4: Dysphagia evaluation. Education Patient has Indicated that the Following Identified Educational Needs: None The Patient has indicated that they have no educational or learning abilities that may effect their care.: Yes Patient Instruction Patient Education: Diagnosis Person Taught: Patient Teaching Method: Discussion Response to teaching: Verbalize Understanding and Has Prior Knowledge
--- NOTE | 2024-09-17 13:23 | HP.SPREEV_ITS ---
Visit History Visit Info Date of Eval: 08/14/24 Visit: 1 Manager Food Beverage: MARTHA History Attending Doctor: ZURI Referring Doctor: ZURI Reason for Referral: [facility] Date of Onset of Diagnosis: 2004 Previous speech therapy: Yes Results: She completed Speak Out program approximately 2 years ago. Medications related to this diagnosis: Rytary 3x daily. Smoking Status: Never smoker Diagnosis Diagnosis: Parkinson's Disease. Voice disorder. Dysphagia. Pain Is pain an issue with your current prescribed condition?: No Personal Preferred language: Ethiopian Patient Allergies Allergies Allergies: Allergies amoxicillin Allergy (Unknown, Verified 06/20/24 09:27) Hives tetracycline Allergy (Unknown, Verified 06/20/24 09:27) Rash Previous/Current Goals Goals 1-5 Previous Goal #1: Patient will increase vocal loudness to reach a target sound pressure level of 75 dB FINISHING DEPARTMENT SUPERVISOR with 1 cue during reading at the word and sentence level, which will help increase vocal respiratory support for functional communication. Goal 1 Status: GOAL CONTINUES: Initially she was at a level of 71.6 dB while reading phrases/sentences with cues. Currently, she is at a range of 73.0 dB to 76.8 dB last 3 sessions. Previous Goal #2: Patient will increase vocal loudness to reach a target sound pressure level of 70 dB FINISHING DEPARTMENT SUPERVISOR with 1 cue during conversation for functional communication. Goal 2 Status: GOAL CONTINUES: Initially she was at 65dB with maximal cues Currently, she is at 69.9, 67.1, 66.5 dB for last three sessions with no cues. Previous Goal #3: the patient will independently demonstrate and utilize recommended compensatory articulation techniques (increased vocal intensity, reduced rate of speech, over-articulation) to facilitate improved speech intelligibility during expressive communication attempts with both familiar and unfamiliar listeners to facilitate highest level of independent functioning within the home environment and community independently / with less than 2 cues during session, in 2 out of 3 sessions. Goal 3 Status: Initially patient was educated on compensatory strategies and cued to use bigger mouth movements. She is able to do so when she is speaking louder but reduces oral movements as volume decreases. She continues to need minimal cues to over articulate when previously it was maximal cues. Previous Goal #4: Dysphagia evaluation. ( bedside completed 08/20/24) Goal 4 Status: She completed a bedside swallow evaluation on 08/20/24 and FEES was recommended. Dry foods needed a liquid wash and double swallows. No overt s/s of aspiration or penetration noted during the evaluation. Other days she has exhibited throat clearing on thin liquids from a water bottle using a straw. FEES is scheduled for 09/24/24 with possible goals added as necessary and appropriate. Subjective Dysphagia Symptoms Reported Symptoms/Problems with: Coughing and Difficulty Swallowing Liquids Comments Patient reported: -: Patient reported that she coughs when drinking. She had repeated throat clearing during the evaluation before any oral intake. She took sips of liquid for dry throat during voice evaluation with noted continued throat clearing. Dysphagia evaluation is warranted. Subjective Dysarthria/Motor Subjective Subjective: Patient states she isn't as clear in speech as she was previously. Objective Dysarthira/Motor Speech Intelligibility Conversation: WFL Volume Volume: Moderate Sounds Sounds in Error: No consistent sound noted in error. She appeared to have overall reduced oral movements during speech which is common in patients with Parkinson's Disease. Observation Observation of Apraxia of Speech: No Oral Groping for Placement: No Inconsistent Errors: No Subjective Voice Informal Questioner Are you a talker: Less than average Do you clear your throat: More than average Do you cough: More than average How often do you use the telephone: Average Medications Mediations: Irina Objective Voice Date of Diagnosis Date of diagnosis: 2004 Previous Speech Therapy (If yes, describe): Yes Details of therapy: Speak Out program approximately 2 years ago. Medications Familiar with on/off effect: No Implantation Deep brain implantation (If yes, answer next question): No Objective data Objective Data: Objective data: Sound pressure level (SPL acoustic correlation of vocal loudness) was measured with a sound level meter at a distance of 40 cm from the patient's mouth. Average conversational loudness is 70-80 dB and sustained phonation duration is 15 to 20 seconds for a typical adult. Sustained Phonation Intensity (dB SPL): 78 Sustained Phonatin duration (seconds): 17 Is the individual stimulable to increase vocal intensity: Yes Vocal Intensity at Conversational Level (dB SPL): 59.9 Subjective Clinical Impression Non-Phonatory Behaviors/Respiration Reduced loudness or vocal weakness: Present Throat clearing/coughing: Present Reference: Neuro-QoL instrument HDQLIFE - Speech Difficulties In the past 7 days. It was difficult for other people to understand me.: Rarely Is was difficult to speak clearly?: Sometimes In the past 7 days.. How often did you limit your social activites because you had difficulty speaking?: Never In the past 7 days... I had trouble speaking.: Somewhat I was frustrated by my speech difficulties.: Somewhat How much DIFFICULTY do you have... ...saying what you want to say?: A little difficulty Score HDQLIFE Speech Difficulties Raw Score: 14 HDQLIFE Speech Difficulties T - Score: 55 Radiation Oncology Patient Plan Plan Plan: A vocal intensity based intervention approach applying LSVT principles to improve speech intelligibility will be used. Given the progressive nature of primary diagnosis, It is not anticipated for a full return to pre-morbid level of functioning, though will expect to achieve gains in speech intelligibility as well as maintain current level of functioning. To achieve this, the patient will require continued skilled speech-language intervention not only through the current intervention cycle but will likely benefit from repeated intervention cycles to maintain communication efficiency. Recommendations Treatment Warranted: Yes Treatment Warranted: Dysphagia and Voice Progress Prognosis: Good Frequency Frequency: 2x /Week Duration: 4 Weeks Visits in this POC: 8 Patient/Family Goal Patient/Family Goal: Patient stated she would like to be louder so her can hear her. Goals that are Established Determination:: Goals will be added/modified as deemed necessary and appropriate. Therapy will be discontinued when results of re-evaluation indicate therapy is no longer needed or lack of progress has been documented. 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 Goal #2: Patient will increase vocal loudness to reach a target sound pressure level of 70 dB FINISHING DEPARTMENT SUPERVISOR with 1 cue during conversation for functional communication. Goal #3: Initially patient was educated on compensatory strategies and cued to use bigger mouth movements. She is able to do so when she is speaking louder but reduces oral movements as volume decreases. She continues to need maximal cues to over articulate. Goal #4: Dysphagia goals added after FEES as appropriate and necessary. Education Patient has Indicated that the Following Identified Educational Needs: None The Patient has indicated that they have no educational or learning abilities that may effect their care.: Yes Patient Instruction Patient Education: Diagnosis Person Taught: Patient Teaching Method: Discussion Response to teaching: Verbalize Understanding and Has Prior Knowledge
--- NOTE | 2024-10-01 13:07 | HP.SPFEES ---
FEES Patient Information Date of Evaluation: 09/24/24 Time of Evaluation: 10:00 Diagnosis: Dysphagia, Parkinson's Disease Staff Providing this Care/Treatment:: MARTHA Direct Billable Minutes: 120 History: Past Medical History:: Patient was diagnosed with Parkinson's Disease approximately 20 years ago. She has completed Speak Out program and has had a prior swallow study while in [place] ( over two years ago) TX/DX History:: Yes and MBSS Subjective: Subjective:: Patient reported that she coughs when drinking. Current Diet: Drinks/Liquids:: Thin Foods:: Regular Medication Administration:: orally Respiratory Status Observation:: Room Air. Vocal Quality: Observations:: Other (See Comment) Comments:: Patient has been in treatment for reduced volume but otherwise vocal quality is good. Cognition: Observations:: WFL Position During FEES: Position During FEES:: Upright Location: In Chair Fiberoptic Endoscope: Size: 3.4 mm Nare Used:: Right Anatomy: Velum Movement: Yes Nasopharynx Tissue Description: [place] and Moist Comments:: Noted that the patient had intermittent mucus strings in laryngeal vestibule, across the airway. Phonation: Arytenoid Adduction: WNL Vocal Fold Adduction: WNL Penetration-Aspiration Scale Penetration-Aspiration Scale Thin Liquids by Single Cup Food/Drink Provided:: Water Swallow Onset Location:: Pyriform Sinuses PAS Score: PAS Score *1 Visual Analysis of Swallowing Efficiency and Safety (VASES) after the swallow: Hypopharynx Comments:: Patient had diffuse residue in vallecula and pyriform sinuses which cleared majority with a double natural swallow. Strategies Trialed:: Small drinks were effective to reduce majority of residue and reduce amount of premature spillage. Thin Liquids by Sequential Cup Food/Drink Provided:: Water Swallow Onset Location:: Pyriform Sinuses Visual Analysis of Swallowing Efficiency and Safety (VASES) after the swallow: Hypopharynx Comments:: Patient had increased residue with increased drink size/multiple drinks. Patient had diffuse residue in vallecula and pyriform sinuses which cleared majority with a double natural swallow. Strategies Trialed:: Natural second and sometimes third swallow to clear residue. Thin Liquids by Single Straw Swallow Onset Location:: Pyriform Sinuses PAS Score: PAS Score *1 Visual Analysis of Swallowing Efficiency and Safety (VASES) after the swallow: Hypopharynx Comments:: Patient had diffuse residue in vallecula and pyriform sinuses which cleared majority with a double natural swallow. Strategies Trialed:: Small sip size reduced residue and natural double swallow cleared majority of residue. Puree Textures Food/Drink Provided:: Yogurt Swallow Onset Location:: Vallecula PAS Score: PAS Score *1 Visual Analysis of Swallowing Efficiency and Safety (VASES) after the swallow: Oropharynx and Hypopharynx Comments:: Significant residue in vallecula and on base of the tongue. Minimal coating on posterior pharyngeal wall and on lateral glosso-epiglottic folds Strategies Trialed:: Patient exhibited a natural second swallow on all three bites trialed with yogurt which was minimally effective to reduce residue. A liquid wash was minimally effective to help reduce residue. Even after several swallows she continues to have diffuse residue ( base of the tongue, vallecula, posterior pharyngeal wall, lateral glosso-epiglottic folds, upper part of pyriform sinuses.) Additional Comments:: Patient exhibited reduced pharyngeal contraction as demonstrated by reduced white out phase of the swallow. Easy to Chew Textures Food/Drink Provided:: Banana Swallow Onset Location:: Vallecula PAS Score: PAS Score *1 Visual Analysis of Swallowing Efficiency and Safety (VASES) after the swallow: Oropharynx and Hypopharynx Comments:: Patient had moderate residue ( approximately 50%) on right side of vallecula and on base of the tongue. She was able to clear 90% of residue with a natural second swallow. Strategies Trialed:: Natural double swallow. Regular Textures Food/Drink Provided:: Potato Chips, Peanut Butter pretzels, Sausage sandwich. Swallow Onset Location:: Vallecula and Pyriform Sinuses PAS Score: PAS Score *1 Visual Analysis of Swallowing Efficiency and Safety (VASES) after the swallow: Oropharynx and Hypopharynx Comments:: Patient had prelature spillage to the vallecula prior to swallow. Swallow trigger was at the lateral sides of the vallecula. Moderate residue on the right side of the vallecula noted that majority cleared with a second swallow with potato chips and peanut butter pretzels. After second swallow she had mild residue on the base of the tongue and vallecula. A third natural swallow cleared 95% of residue. Strategies Trialed:: Natural double and triple swallow helped to clear residues. Patient is aware of residue and will naturally take extra swallows to clear or use a liquid wash. Additional Comments:: Patient reported at home she often takes drinks while eating. Diagnosis/Impressions Diagnosis: Oropharyngeal dysphagia Impressions: Patient presented with mild to moderate oropharyngeal dysphagia secondary to significant residue with liquids and thick puree. Large drinks, both from a cup and a straw, had premature spillage to the pyriform sinuses. Noted reduced white out phase during the swallows which can indicate weakness. She had reduced mastication with harder foods indicating she needs smaller bites. Patient had mucus from below the vocal cords come up through the vocal cords when she coughed and laid on the ventricular folds. She was able to clear it ( it moved laterally to pyriform sinus with two swallows) by swallowing it. This may contribute to her increased coughing if she has increased mucus on a consistent basis. Swallowing Impairment: Mastication Inefficiency, Impaired Oropharyngeal Transport, Premature Posterior Loss, Decreased Pharyngeal Contraction and Decreased Airway Closure Recommendations Diet: Regular Textures and Thin Liquids Medication Administration:: Whole with liquids Compensatory Strategies: Small Bites, Small Sips, Slow Rate, Multiple Swallows, Sitting upright, Remain sitting upright for 30 minutes after PO intake and Minimize/decrease distractions Recommend Repeat Instrumental Swallow Assessment: TBD Need for Skilled Speech Therapy Services: Yes Education Completed: 1. Described result of evaluation. and 4. Family/caregivers understand evaluation & agree w/ goals & tx plan. Frequency Frequency: 1x/Week Additional (Frequency): Patient requested reduced visits. Session will be 1-2 weeks at once a week to educate patient and answer all questions. Then another session in 1 month to determine progress. Sessions may be 1x per month for 2-4 months after that. Duration: 6 Weeks Visits in this POC: 6 Goals that are Established Patient/Family Goal: Patient stated she would like to be louder so her can hear her. Determination:: Goals will be added/modified as deemed necessary and appropriate. Therapy will be discontinued when results of re-evaluation indicate therapy is no longer needed or lack of progress has been documented. Goal #1: Patient will tolerate the least restrictive means of nutrition to facilitate adequate hydration/nutrition with optimum safety and efficiency of swallowing function during P.O. intake without overt signs and symptoms of aspiration. Goal #2: Patient will demonstrate and utilize recommended compensatory swallowing techniques to facilitate improved airway protection and decreased risk for aspiration during PO intake, across 3 out of 3 sessions. Goal #3: Patient will demonstrate and utilize recommended oropharyngeal strengthening exercises to facilitate improved oropharyngeal strength with minimal cueing and prompting provide by the clinician, across 3 to 3 sessions. Goal #4: .
== END 2024-11-02 19:00 | disposition home or self-care (01) ==
LOC: SP 12:00
PROVIDERS: PCP Family Medicine Geriatric Medicine; Referring Provider Physician Assistant; Visit Provider Physician Assistant
DX: G20.B2 Parkinson's disease with dyskinesia, with fluctuations (principal); R49.0 Dysphonia; R13.10 Dysphagia, unspecified
CPT/HCPCS: 92507; 92524; 92526; 92610; 92612

== ENCOUNTER → 2025-02-12 | Outpatient (CLI) | payer MEDICARE, SELFPAY ==
[2025-02-12 16:28] LABS: Absolute Lymphocyte Count 1.63 X10^3/uL (0.83-4.51); Absolute Neutrophil Count 3.4 X10^3/uL (2.0-7.7); Basophil# 0.03 X10^3/uL; Basophil% 0.5 % (0-1); Eosinophil# 0.11 X10^3/uL; Eosinophils% 1.9 % (0-5); Hematocrit 42.3 % (37-47); Hemoglobin 13.6 g/dL (12.0-15.0); Lymphocyte # 1.63 X10^3/ul (0.83-4.51); Lymphocyte % 28.5 % (19-41); Mean Corp Hgb Conc 32.2 g/dL (32-36); Mean Corpuscular Hgb 29.6 pg (27.0-32.0); Mean Platelet Vol. 8.6 fl (6.2-12.0); Monocyte# 0.52 X10^3/uL; Monocyte% 9.1 % (0-10); NRBC Flagged by Analyzer 0 % (0-5); Neutrophil # 3.42 X10^3/uL (2.7-7.7); Neutrophil % 59.8 % (47-70); Platelet Count 181 K/mm3 (150-450); RBC Distribution Width CV 13.8 % (11.6-14.6); RBC Distribution Width SD 46.8 fl (35.1-43.9); White Blood Count 5.7 K/mm3 (4.4-11.0)
[2025-02-12 17:30] LABS: ALB/GLOB Ratio 1.4 RATIO (0.9-2.4); AST(SGOT) 24 U/L (<=31); Alanine Aminotransfer ALT/SGPT 5 U/L (<=34); Albumin, Serum 4.1 g/dL (3.4-4.8); Alkaline Phosphatase 71 U/L (35-104); Anion Gap 9 (5-15); BUN 23 mg/dL (4-19); BUN/Creat Ratio 28.7 RATIO (10-20); Calcium,Total 9.5 mg/dL (7.6-11.0); Chloride 101 mmol/L (98-108); Creatinine, Serum 0.78 mg/dL (0.70-1.20); EST Glomerular Filtration Rate 73 (>60); Glucose 96 mg/dL (70-99); Potassium 4.1 mmol/L (3.3-5.1); Protein, Total 7.2 g/dL (5.9-8.4); Sodium Level 138 mmol/L (133-145); Total Bilirubin 0.64 mg/dL (0.00-1.30)
== END | disposition home or self-care (01) ==
PROVIDERS: PCP Family Medicine Geriatric Medicine; Referring Provider Family Medicine Geriatric Medicine; Visit Provider Family Medicine Geriatric Medicine
DX: N39.0 Urinary tract infection, site not specified (principal); L03.031 Cellulitis of right toe
CPT/HCPCS: 36415; 80053; 85025; 87077; 87086; 87088

== ENCOUNTER → 2025-02-19 | Outpatient (CLI) | payer MEDICARE, SELFPAY | END | disposition home or self-care (01) | LOC: LABSPEC 16:38 | PROVIDERS: PCP Family Medicine Geriatric Medicine; Visit Provider Podiatrist | DX: L97.512 Non-pressure chronic ulcer of other part of right foot with fat layer exposed (principal) | CPT/HCPCS: 87070; 87077; 87186; 87205 ==

== ENCOUNTER → 2025-06-06 | Outpatient (CLI) | payer MEDICARE, SELFPAY ==
[2025-06-06 13:07] LABS: Hematocrit 46.0 % (37-47); Hemoglobin 14.7 g/dL (12.0-15.0); Immature Granulocytes Count 0.020 X10^3/uL (0.0-0.0); Mean Corp Hgb Conc 32.0 g/dL (32-36); Mean Corpuscular Volume 94.1 fL (81-99); Mean Platelet Vol. 8.8 fl (6.2-12.0); NRBC Flagged by Analyzer 0 % (0-5); Platelet Count 184 K/mm3 (150-450); RBC Distribution Width CV 13.2 % (11.6-14.6); RBC Distribution Width SD 46.1 fl (35.1-43.9); Red Blood Count 4.89 M/mm3 (4.2-5.4); White Blood Count 6.7 K/mm3 (4.4-11.0)
[2025-06-06 15:23] LABS: Vitamin D,25 Hydroxy 52.1 ng/mL (30-100)
[2025-06-06 15:28] LABS: AST(SGOT) 30 U/L (<=31); Alanine Aminotransfer ALT/SGPT < 5 U/L (<=34); Albumin, Serum 4.2 g/dL (3.4-4.8); Alkaline Phosphatase 66 U/L (35-104); Anion Gap 11 (5-15); BUN 24 mg/dL (4-19); BUN/Creat Ratio 33.0 RATIO (10-20); Calcium,Total 9.6 mg/dL (7.6-11.0); Carbon Dioxide 27.2 mmol/L (21.0-32.0); Chloride 101 mmol/L (98-108); Globulin 3.3 g/dL (2.2-4.2); Glucose 94 mg/dL (70-99); Potassium 4.1 mmol/L (3.3-5.1)
[2025-06-06 20:51] LABS: Xtra Tube Kwok EXTRA TUBE
== END | disposition home or self-care (01) ==
LOC: POLAB3 12:51
PROVIDERS: PCP Family Medicine Geriatric Medicine; Visit Provider Family Medicine Geriatric Medicine
DX: I10 Essential (primary) hypertension (principal); E03.9 Hypothyroidism, unspecified; E55.9 Vitamin D deficiency, unspecified
CPT/HCPCS: 36415; 80053; 82306; 84443; 85025